=== PATIENT | male | born 1965 | race Caucasian/White ===

== ENCOUNTER 2021-10-24 08:36 | Outpatient (REF) | payer BC, SELFPAY ==
--- NOTE | ~2021-10-24 | XR_ITS ---
EXAMINATION: XR CHEST CLINICAL INFORMATION: Weight loss COMPARISON: None TECHNIQUE: 2 views of the chest were obtained. FINDINGS: The lungs are well-expanded. There is no focal consolidation, edema or effusion. No pneumothorax. The cardiomediastinal silhouette is within normal limits. No acute osseous abnormality. XR/XR chest 2V IMPRESSION: No acute pulmonary disease.
[2021-10-24 10:06] LABS: MANUAL DIFF FLAG NO
[2021-10-24 10:14] LABS: Appearance Urine CLEAR; Color Urine YELLOW; Glucose Urine UA NEG (NEG); Leukocyte Esterase Urine NEG (NEG); Nitrite Urine NEG (NEG); Specific Gravity - Urine 1.025 (1.005-1.025); Urine Blood 2+ (NEG); Urine Ketones NEG (NEG); Urine Protein NEG (NEG-TRACE)
[2021-10-24 10:15] LABS: Basophils Percent Auto 0.6 % (0-2); Eosinophils Absolute Auto 0.1 X10*3/uL (0.0-0.4); Eosinophils Percent Auto 1.2 % (0-4); Hematocrit 45.5 % (42.0-52.0); Imm Gran Abs Auto 0.02 X10*3/uL (0.00-0.03); Imm Gran Pct Auto 0.3 % (0.0-0.4); Lymphocytes Percent Auto 30.8 % (20-40); Mean Corpuscular Hemoglobin 29.9 pg (27.0-33.0); Mean Corpuscular Volume 90.6 fL (80.0-98.0); Mean Platelet Volume 10.4 fL (9.4-12.4); Monocytes Absolute Auto 0.5 X10*3/uL (0.1-1.2); Neutrophils Absolute Auto 3.8 x10*3/uL (2.0-8.3); Neutrophils Percent Auto 59.1 % (45-73); Platelet Count 208 X10*3/uL (160-400); Red Blood Count 5.02 X10*6/uL (4.60-5.80); Red Cell Distribution Width 13.2 % (11.0-16.0); White Blood Count 6.5 X10*3/uL (4.8-10.8)
[2021-10-24 10:38] LABS: Mucus Urine 2+ /LPF; Squamous Epithelial Cell Urine 1+ /LPF; WBC Urine 0 /HPF (0-4)
[2021-10-24 11:10] LABS: Alanine Aminotransferase 18 U/L (0-40); Albumin Level 4.4 g/dL (3.5-5.0); Alkaline Phosphatase 72 U/L (39-117); Anion Gap 10 (12-20); Aspartate Amino Transferase 21 U/L (5-37); Bilirubin Total 0.5 mg/dL (0.0-1.0); Blood Urea Nitrogen 15 mg/dL (9-16); Calcium 9.3 mg/dL (8.4-10.2); Carbon Dioxide 30 mmol/L (22-29); Chloride 105 mmol/L (96-108); Cholesterol 158 mg/dL; Estimated Glomerular Filt Rate > 60; Glucose Fasting 83 mg/dL (60-99); HDL Cholesterol 47 mg/dL; LDL Cholesterol Calculated 104 mg/dl; Potassium 4.5 mmol/L (3.3-5.1); Sodium 140 mmol/L (135-145); Triglycerides 36 mg/dL
[2021-10-24 11:13] LABS: Free T4 (Free Thyroxine) 0.86 ng/dL (0.71-1.85); Prostate Specific Antigen Scr 0.17 ng/mL (<0.05-4.0); Thyroid Stimulating Hormone 1.11 uIU/mL (0.32-4.0)
== END 2021-10-24 08:37 | disposition home or self-care (01) ==
LOC: HO.10HDL 08:36
PROVIDERS: PCP Internal Medicine; Visit Provider Internal Medicine
DX: R63.4 Abnormal weight loss (principal); I10 Essential (primary) hypertension; R60.9 Edema, unspecified; Z12.5 Encounter for screening for malignant neoplasm of prostate
CPT/HCPCS: 36415; 71046; 80053; 80061; 81001; 84153; 84439; 84443; 85025

== ENCOUNTER 2021-11-01 08:45 | Outpatient (REF) | payer BC, SELFPAY ==
[2021-11-01 10:50] LABS: Appearance Urine HAZY; Color Urine YELLOW; Glucose Urine UA NEG (NEG); Leukocyte Esterase Urine NEG (NEG); Nitrite Urine NEG (NEG); PH 6.5 (5.0-8.0); Urine Blood 2+ (NEG); Urine Ketones NEG (NEG); Urine Protein NEG (NEG-TRACE)
[2021-11-01 11:05] LABS: Mucus Urine TRACE /LPF; Squamous Epithelial Cell Urine TRACE /LPF; WBC Urine 0 /HPF (0-4)
== END 2021-11-01 08:46 | disposition home or self-care (01) ==
LOC: HO.10HDL 08:45
PROVIDERS: Visit Provider Internal Medicine
DX: R31.9 Hematuria, unspecified (principal)
CPT/HCPCS: 81001

== ENCOUNTER 2021-11-14 08:37 | Outpatient (REF) | payer BC, SELFPAY ==
[2021-11-14 10:23] LABS: Urine Cytology See Pathology rpt
== END 2021-11-14 08:38 | disposition home or self-care (01) ==
LOC: HO.10HDL 08:37
PROVIDERS: Visit Provider Internal Medicine
DX: R31.9 Hematuria, unspecified (principal)
CPT/HCPCS: 88112

== ENCOUNTER 2021-12-19 08:20 | Outpatient (REF) | payer BC, SELFPAY ==
--- NOTE | ~2021-12-19 | US_ITS ---
EXAMINATION: US RETROPERITONEAL LIMITED (RENAL ONLY) CLINICAL INFORMATION: Hematuria. COMPARISON: CT abdomen and pelvis 10/11/2018. TECHNIQUE: Real-time imaging of the kidneys. FINDINGS: RIGHT KIDNEY: 12.3 x 4.5 x 5.2 cm (SAG x AP x TRV). The kidney is normal in size, contour, and echogenicity. Renal cortical thickness is normal. There are 3 small cysts, largest measuring 1.2 x 0.9 x 1 cm in the upper pole. No renal calculi or hydronephrosis. LEFT KIDNEY: 12.6 x 6.9 x 6.0 cm (SAG x AP x TRV). The kidney is normal in size, contour, and echogenicity. Renal cortical thickness is normal. There is a 2 x 3 mm stone in the midpole. There are 2 left renal cysts largest measuring 1.4 x 1.5 x 1.3 cm in the midpole. No hydronephrosis. US/US renal BI IMPRESSION: Small left renal stone. Bilateral renal cysts.
== END 2021-12-19 08:21 | disposition home or self-care (01) ==
LOC: HO.US 08:20
PROVIDERS: PCP Internal Medicine; Visit Provider Internal Medicine
DX: R31.9 Hematuria, unspecified (principal)
CPT/HCPCS: 76775

== ENCOUNTER → 2022-05-02 12:31 | Outpatient (REF) | payer BC, SELFPAY ==
--- NOTE | ~2022-05-02 | US_ITS ---
EXAMINATION: US EXTRACRANIAL CAROTID DUPLEX, BILATERAL CLINICAL INFORMATION: Left branch retinal artery occlusion, rule out stenosis COMPARISON: None TECHNIQUE: Real-time ultrasound and Doppler techniques (integrating B-mode 2-D vascular images, Doppler spectral analysis and color-flow Doppler imaging) were utilized to interrogate the extracranial carotid arteries, the vertebral arteries and proximal subclavian arteries bilaterally. The degree of stenosis is determined by criteria similar to NASCET. FINDINGS: Right Side: 1. There is mild atherosclerotic plaque seen in the bifurcation/proximal ICA region. 2. The common carotid artery PSV proximally is 68 cm/s and distally 60 cm/s. 3. The proximal internal carotid artery velocities are 61 cm/s systolic and 22 cm/s diastolic. 4. The proximal external carotid artery PSV is 58 cm/s. 5. The vertebral artery shows antegrade flow. 6. The subclavian artery waveforms are normal. Left Side: 1. There is mild atherosclerotic plaque seen in the bifurcation/proximal ICA region. 2. The common carotid artery PSV proximally is 83 cm/s and distally 54 cm/s. 3. The proximal internal carotid artery velocities are 48 cm/s systolic and 15 cm/s diastolic. 4. The proximal external carotid artery PSV is 45 cm/s. 5. The vertebral artery shows antegrade flow. 6. The subclavian artery waveforms are normal. US/US carotid duplex BI IMPRESSION: 1. RIGHT: Minimal, non-hemodynamically significant stenosis of the proximal right internal carotid artery corresponding to a 0-49% stenosis by velocity criteria. 2. LEFT: Minimal, non-hemodynamically significant stenosis of the proximal left internal carotid artery corresponding to a 0-49% stenosis by velocity criteria.
--- NOTE | 2022-05-02 12:36 | CA_ITS ---
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 The calculated ejection fraction is 55% by biplane method. - No obvious valvular pathology seen on this study. Findings Left Ventricle Normal left ventricular cavity size. There is normal left ventricular wall thickness. The left ventricular systolic function is normal. The calculated ejection fraction is 55% by biplane method. There is no evidence of regional wall motion abnormalities. Diastolic function is normal for age. LV peak GLS -17.6%. Right Ventricle Normal right ventricular cavity size and systolic function. Atria Both atria are normal in size. Aortic Valve The aortic valve was not well visualized. The aortic valve structure and function is likely normal. There is no aortic valve stenosis. There is no aortic valve regurgitation. Mitral Valve The mitral valve appears normal. There is trace mitral valve regurgitation. There is no mitral valve stenosis. Pulmonic Valve The pulmonic valve is likely normal. Tricuspid Valve There is trace tricuspid valve regurgitation. There is no evidence of pulmonary hypertension. Great Vessels The asc aorta is normal in size. Venous The inferior vena cava is normal in size and collapses greater than 50% with inspiration. Pericardium/Pleural There is no evidence of pericardial effusion. Prior Study Comparison No prior study available for comparison. Recommendations, Care & Conclusions No obvious valvular pathology seen on this study. Measurements 2D Linear Measurements IVSd: 0.94 0.6-0.9/0.6-1.0 cm LVIDd: 5.40 3.9-5.3/4.2-5.9 cm LVIDd Index: 2.54 2.4-3.2/2.2-3.1 cm/m2 LVIDs: 3.63 2.0-3.6 cm LVPWd: 0.93 0.7-1.1 cm LA Diam: 4.10 2.7-3.8/3.0-4.0 cm LAIDs Index: 1.92 1.5-2.3 cm/m2 LV Mass: 236.18 67-162/88-224 g LV Mass Index: 110.88 43-95/49-115 g/m2 LVOT Diam: 2.30 3.0+(-)1.3 cm 2D Systolic Function EF 4C: 49.10 >55% EF 2C: 58.30 >55% EF BiP: 55.10 >55% Mitral Valve MV Pk E: 0.83 MV PK A: 0.54 MV Decel Time: 278.00 E/A: 1.50 E'Lateral: 13.60 E'Medial: 9.68 E/E' Med: 8.50 E/E' Lat: 6.10 PHT: 81.00 MVA PHT: 2.72 Decel [place]: 2.98 Aortic Valve AoV Pk Jose: 1.35 AoV Mn Jose: 0.92 AoV VTI: 0.26 AoV Pk Grad: 7.00 Aov Mn Grad: 4.00 RICKEY Cont.VTI: 3.98 LVOT LVOT Pk Jose: 1.21 LVOT Mn Jose: 0.83 LVOT VTI: 0.25 LVOT Pk Grad: 6.00 LVOT Mn Grad: 3.00 LVOT Diam: 2.30 LVOT Area: 4.15 Diastolic Function MV Pk E: 0.83 MV Pk A: 0.54 E/A: 1.50 E'Medial: 9.68 E/E' Med: 8.50 E' Laterial: 13.60 E/E' Lat: 6.10 Right Ventricle TAPSE (mm): 27.70 TVS' Jose: 12.00 Tricuspid Valve RA Press: 3.00 Great Vessels Aorta Sinus of Valsalva: 3.90 2.0-3.5 cm Ao Asc: 3.70 2.1-3.4 cm Pulmonary Valve PV Pk Jose: 0.94 Peak PV Grad: 4.00 Updated in Other Vendor System with Status of Final Angel Ceja MD electronically signed on 05/02/2022 3:28:11 PM with status of Final
== END ==
LOC: HO.CARD 12:31
PROVIDERS: PCP Internal Medicine; Visit Provider Internal Medicine
DX: H34.8322 Tributary (branch) retinal vein occlusion, left eye, stable (principal)
CPT/HCPCS: 93306; 93356; 93880

== ENCOUNTER 2022-10-03 06:30 | Outpatient (REF) | payer BC, SELFPAY ==
[2022-10-03 06:35] LABS: MANUAL DIFF FLAG NO
[2022-10-03 07:28] LABS: Basophils Absolute Auto 0.1 X10*3/uL (0.0-0.2); Basophils Percent Auto 0.6 % (0-2); Eosinophils Absolute Auto 0.1 X10*3/uL (0.0-0.4); Eosinophils Percent Auto 1.3 % (0-4); Hematocrit 45.4 % (42.0-52.0); Imm Gran Abs Auto 0.02 X10*3/uL (0.00-0.03); Imm Gran Pct Auto 0.3 % (0.0-0.4); Lymphocytes Absolute Auto 2.5 X10*3/uL (1.2-4.9); Lymphocytes Percent Auto 31.8 % (20-40); Mean Corpuscular Hemoglobin 29.6 pg (27.0-33.0); Mean Corpuscular Volume 89.5 fL (80.0-98.0); Mean Platelet Volume 10.6 fL (9.4-12.4); Monocytes Absolute Auto 0.8 X10*3/uL (0.1-1.2); Monocytes Percent Auto 9.9 % (2-11); Neutrophils Absolute Auto 4.4 x10*3/uL (2.0-8.3); Neutrophils Percent Auto 56.1 % (45-73); Platelet Count 187 X10*3/uL (160-400); Red Blood Count 5.07 X10*6/uL (4.60-5.80); Red Cell Distribution Width 13.6 % (11.0-16.0); White Blood Count 7.8 X10*3/uL (4.8-10.8)
[2022-10-03 08:11] LABS: Alanine Aminotransferase 21 U/L (0-40); Albumin Level 4.3 g/dL (3.5-5.0); Alkaline Phosphatase 73 U/L (39-117); Anion Gap 16 (12-20); Aspartate Amino Transferase 15 U/L (5-37); Bilirubin Total 0.8 mg/dL (0.0-1.0); Blood Urea Nitrogen 18 mg/dL (9-16); Calcium 9.3 mg/dL (8.4-10.2); Carbon Dioxide 26 mmol/L (22-29); Chloride 105 mmol/L (96-108); Cholesterol 162 mg/dL; Estimated Glomerular Filt Rate > 60; Glucose Fasting 92 mg/dL (60-99); HDL Cholesterol 53 mg/dL; LDL Cholesterol Calculated 102 mg/dl; Potassium 4.6 mmol/L (3.3-5.1); Sodium 142 mmol/L (135-145); Total Protein 6.8 g/dL (6.5-8.0); Triglycerides 35 mg/dL
== END 2022-10-03 06:31 | disposition home or self-care (01) ==
LOC: HO.LAB 06:30
PROVIDERS: PCP Internal Medicine; Visit Provider Internal Medicine
DX: Z00.00 Encounter for general adult medical examination without abnormal findings (principal); Z12.5 Encounter for screening for malignant neoplasm of prostate
CPT/HCPCS: 36415; 80053; 80061; 84153; 85025

== ENCOUNTER 2023-10-02 11:14 | Outpatient (REF) | payer OTHER, SELFPAY ==
[2023-10-02 11:55] LABS: MANUAL DIFF FLAG NO
[2023-10-02 12:52] LABS: Basophils Percent Auto 0.7 % (0-2); Eosinophils Absolute Auto 0.1 X10*3/uL (0.0-0.4); Eosinophils Percent Auto 1.2 % (0-4); Hematocrit 42.4 % (42.0-52.0); Hemoglobin 14.3 g/dl (14.0-18.0); Imm Gran Abs Auto 0.02 X10*3/uL (0.00-0.03); Imm Gran Pct Auto 0.3 % (0.0-0.4); Lymphocytes Absolute Auto 1.8 X10*3/uL (1.2-4.9); Lymphocytes Percent Auto 30.4 % (20-40); Mean Corpuscular HGB Conc 33.7 g/dl (31.0-36.0); Mean Corpuscular Hemoglobin 30.4 pg (27.0-33.0); Mean Corpuscular Volume 90.2 fL (80.0-98.0); Mean Platelet Volume 10.5 fL (9.4-12.4); Monocytes Absolute Auto 0.5 X10*3/uL (0.1-1.2); Monocytes Percent Auto 8.8 % (2-11); Neutrophils Absolute Auto 3.5 x10*3/uL (2.0-8.3); Neutrophils Percent Auto 58.6 % (45-73); Platelet Count 199 X10*3/uL (160-400); Red Cell Distribution Width 13.3 % (11.0-16.0)
[2023-10-02 14:00] LABS: Appearance Urine Clear; Color Urine Yellow; Glucose Urine UA Negative (Negative); Leukocyte Esterase Urine Negative (Negative); Nitrite Urine Negative (Negative); PH 6.5 (5.0-9.0); Specific Gravity - Urine 1.015 (1.005-1.025); UMIC TRIGGER UA YES; Urine Blood Small (1+) (Negative); Urine Ketones Negative (Negative); Urine Protein Negative (Neg-Trace)
[2023-10-02 14:06] LABS: Bacteria Urine None Seen (None Seen); Hyaline Casts Urine 0-2 /LPF (0-2); Squamous Epithelial Cell Urine 0-2 /HPF (0-2); WBC Urine 0-5 /HPF (0-5)
[2023-10-02 14:35] LABS: Alanine Aminotransferase 19 U/L (0-40); Albumin Level 4.1 g/dL (3.5-5.0); Alkaline Phosphatase 71 U/L (39-117); Anion Gap 14 (12-20); Aspartate Amino Transferase 25 U/L (5-37); Bilirubin Total 0.5 mg/dL (0.0-1.0); Blood Urea Nitrogen 14 mg/dL (9-16); Calcium 9.1 mg/dL (8.4-10.2); Carbon Dioxide 26 mmol/L (22-29); Chloride 104 mmol/L (96-108); Cholesterol 172 mg/dL (<200); Estimated Glomerular Filt Rate > 60; Glucose Fasting 80 mg/dL (60-99); HDL Cholesterol 55 mg/dL (>40); LDL Cholesterol Calculated 110 mg/dL (<100); Potassium 4.4 mmol/L (3.3-5.1); Sodium 140 mmol/L (135-145); Total Protein 7.2 g/dL (6.5-8.0); Triglycerides 36 mg/dL (<150)
== END 2023-10-02 11:15 | disposition home or self-care (01) ==
LOC: HO.LAB 11:14
PROVIDERS: PCP Internal Medicine; Visit Provider Internal Medicine
DX: Z12.5 Encounter for screening for malignant neoplasm of prostate (principal); I10 Essential (primary) hypertension; Z86.010 Personal history of colon polyps; Z87.442 Personal history of urinary calculi
CPT/HCPCS: 36415; 80053; 80061; 81001; 81003; 84153; 85025

== ENCOUNTER 2024-09-19 15:28 | Outpatient (REF) | payer OTHER, SELFPAY ==
--- NOTE | ~2024-09-19 | US_ITS ---
EXAMINATION: BILATERAL CAROTID ULTRASOUND WITH DOPPLER HISTORY: VISUAL DISTURBANCES COMPARISON: Comparison is made with the prior examination dated 05/02/2022. TECHNIQUE: Real time and Color and Spectral doppler ultrasonography of the carotid and vertebral arteries was performed in multiple planes. FINDINGS: There is mild plaque involving the proximal left internal carotid artery. Occasional arrhythmia is noted. VERTEBRAL FLOW DIRECTION: Antegrade bilaterally. PEAK SYSTOLIC VELOCITIES (in cm/sec): RIGHT: CCA: Prox: 85 Dist: 73 ICA: Prox: 68 Mid: 73 Dist: 98 ICA/CCA Ratio: 1.15 ECA: 110 Peak ICA EDV: 48 LEFT: CCA: Prox: 102 Dist: 80 ICA: Prox: 54 Mid: 99 Dist: 122 ICA/CCA Ratio: 1.20 ECA: 65 Peak ICA EDV: 54 US/US carotid duplex BI IMPRESSION: 1. No significant stenosis on the right. 2. Findings consistent with 0-49% stenosis of the left internal carotid artery. 3. Occasional arrhythmia is noted. Correlation with EKG is suggested. Electronically signed by: Ruel Ingram MD 09/22/2024 07:34 AM [facility]
--- OUTSIDE RECORDS SUMMARY | 2024-09-19 16:30 | XMS_ITS | Clinical Summary ---
Author Organization [employer] Address [address] [place] [address] Care Team Providers Care Currency Counter Name Role Phone Unavailable Primary Care Provider Unavailabl e Social History Tobacco Use Types Packs/Day Years Used Date Smoking Tobacco: Never Assessed Sex and Gender Information Value Date Recorded Sex Assigned at Male 06/26/2022 10:22 AM EDT Legal Sex Male 10:22 AM EDT Gender Identity Male 06/26/2022 10:22 AM EDT Sexual Orientation Straight 06/26/2022 10 :22 AM EDT Plan of Treatment Health Maintenance Due Date Last Done Comments CT Colonography 1965 Colonoscopy 1965 Colorectal Cancer Screening 1965 Depression Screening 1965 FIT DNA/Cologuard 1965 FIT 1965 FOBT 1965 Lipid Panel 1965 Sigmoidoscopy 1965 Alcohol/Substance Use Screening 1977 Tobacco Screening 1977 DTaP/Tdap/Td Vaccines (1 - Tdap) 1984 Hepatitis B Vaccines (1 of 3 - 19+ 3-dose series) 1984 Zoster Vaccines (1 of 2) 12/08/2015 COVID-19 Vaccine ( - 2023-2 5 season) 2024 Influenza Vaccine (#1) 2024 RSV Patients and Pa tients Aged 60 years or older (1 - 1-dose 75+ series) 2040 HIB Vaccines Aged Out No longer eligi ble based on patient's age to complete this topic HPV Vaccines Aged Out No longer eligi ble based on patient's age to complete this topic Hepatitis A Vaccines Aged Out No long er eligible based on patient's age to complete this topic IPV Vaccines Aged Out No longer eligi ble based on patient's age to complete this topic Meningococcal Vaccine Aged Out No dipti michell eligible based on patient's age to complete this topic Pneumococcal Vaccine: Pediat rics (0 to 5 Years) and At-Risk Patients (6 to 64 Years) Aged Out No longer eligible b ased on patient's age to complete this topic RSV under 20 months Aged Out No longe r eligible based on patient's age to complete this topic Rotavirus Vaccines Aged Out No longer eligible based on patient's age to complete this topic
--- OUTSIDE RECORDS SUMMARY | 2024-09-19 16:30 | XMS_ITS | Encounter Summary ---
Author Organization [employer] Address [address] [place] [address] Care Team Providers Care Prospecting Driller Name Role Phone Unavailable Primary Care Provider Unavailabl e Encounter Details Date Type Department Care Team (Latest Contact Info) Description 04/30/2019 Abstract C CONVERSIONS Dental, Provider, DDS Social History Tobacco Use Types Packs/Day Years Used Date Smoking Tobacco: Never Assessed Sex and Gender Information Value Date Recorded Sex Assigned at Male 06/26/2022 10:22 AM EDT Legal Sex Male 10:22 AM EDT Gender Identity Male 06/26/2022 10:22 AM EDT Sexual Orientation Straight 06/26/2022 10 :22 AM EDT documented as of this encounter Plan of Treatment Not on file documented as of this encounter Visit Diagnoses Not on filedocumented in this encounter
== END 2024-09-19 15:29 | disposition home or self-care (01) ==
LOC: HO.US 15:28
PROVIDERS: PCP Internal Medicine; Visit Provider Internal Medicine
DX: H53.8 Other visual disturbances (principal); I49.9 Cardiac arrhythmia, unspecified; I65.22 Occlusion and stenosis of left carotid artery
CPT/HCPCS: 93880

== ENCOUNTER → 2024-09-19 15:30 | Outpatient (BNV) | payer OTHER, SELFPAY | PROVIDERS: PCP Internal Medicine; Visit Provider Radiology Diagnostic Radiology | DX: I65.22 Occlusion and stenosis of left carotid artery (principal) | CPT/HCPCS: 93880 ==

== ENCOUNTER 2024-10-07 09:34 | Outpatient (REF) | payer OTHER, SELFPAY ==
[2024-10-07 10:24] LABS: MANUAL DIFF FLAG NO
[2024-10-07 10:31] LABS: Appearance Urine Clear; Basophils Percent Auto 0.3 % (0-2); Color Urine Yellow; Eosinophils Percent Auto 0.2 % (0-4); Glucose Urine UA Negative (Negative); Hematocrit 46.4 % (42.0-52.0); Hemoglobin 15.5 g/dl (14.0-18.0); Imm Gran Abs Auto 0.02 X10*3/uL (0.00-0.03); Imm Gran Pct Auto 0.3 % (0.0-0.4); Leukocyte Esterase Urine Negative (Negative); Lymphocytes Absolute Auto 1.9 X10*3/uL (1.2-4.9); Lymphocytes Percent Auto 28.5 % (20-40); Mean Corpuscular HGB Conc 33.4 g/dl (31.0-36.0); Mean Corpuscular Hemoglobin 29.7 pg (27.0-33.0); Mean Corpuscular Volume 88.9 fL (80.0-98.0); Mean Platelet Volume 10.4 fL (9.4-12.4); Monocytes Absolute Auto 0.5 X10*3/uL (0.1-1.2); Monocytes Percent Auto 7.3 % (2-11); Neutrophils Absolute Auto 4.1 x10*3/uL (2.0-8.3); Neutrophils Percent Auto 63.4 % (45-73); Nitrite Urine Negative (Negative); PH 7.5 (5.0-9.0); Platelet Count 204 X10*3/uL (160-400); Red Blood Count 5.22 X10*6/uL (4.60-5.80); Red Cell Distribution Width 13.1 % (11.0-16.0); Specific Gravity - Urine 1.015 (1.005-1.025); UMIC TRIGGER UA YES; Urine Blood Trace (Negative); Urine Ketones Negative (Negative); Urine Protein Negative (Neg-Trace); White Blood Count 6.5 X10*3/uL (4.8-10.8)
[2024-10-07 10:34] LABS: Bacteria Urine None Seen (None Seen); Hyaline Casts Urine 0-2 /LPF (0-2); Squamous Epithelial Cell Urine 0-2 /HPF (0-2); WBC Urine 0-5 /HPF (0-5)
[2024-10-07 11:04] LABS: Alanine Aminotransferase 19 U/L (0-40); Albumin Level 4.5 g/dL (3.5-5.0); Alkaline Phosphatase 69 U/L (39-117); Anion Gap 10 (12-20); Aspartate Amino Transferase 24 U/L (5-37); Bilirubin Total 0.7 mg/dL (0.0-1.0); Blood Urea Nitrogen 10 mg/dL (9-16); Calcium 9.4 mg/dL (8.4-10.2); Carbon Dioxide 31 mmol/L (22-29); Chloride 102 mmol/L (96-108); Cholesterol 154 mg/dL (<200); Estimated Glomerular Filt Rate > 60; Glucose Fasting 100 mg/dL (60-99); HDL Cholesterol 49 mg/dL (>40); LDL Cholesterol Calculated 96 mg/dL (<100); Potassium 4.3 mmol/L (3.3-5.1); Sodium 139 mmol/L (135-145); Total Protein 7.7 g/dL (6.5-8.0); Triglycerides 45 mg/dL (<150)
[2024-10-07 11:20] LABS: Prostate Specific Antigen Scr 0.25 ng/mL (<0.05-4.0)
== END 2024-10-07 09:35 | disposition home or self-care (01) ==
LOC: HO.10HDL 09:34
PROVIDERS: Visit Provider Internal Medicine
DX: Z12.5 Encounter for screening for malignant neoplasm of prostate (principal); I10 Essential (primary) hypertension; E78.5 Hyperlipidemia, unspecified
CPT/HCPCS: 36415; 80053; 80061; 81001; 84153; 85025

== ENCOUNTER 2024-11-07 22:05 | Inpatient (IN) | payer OTHER, SELFPAY ==
[2024-11-07 22:20] VITALS: BMI 26.0
[2024-11-07 22:45] VITALS: BP 164/74; PULSE 67; TEMP 36.8; O2SAT 97
--- NOTE | 2024-11-08 05:54 | PC.ADMIT ---
Juan Daniel Castro is a 58 year old male admitted to as a CV on 15 minute checks. He was admitted on 11/07/24 from [facility] at approximately 2220 via stretcher. His safety and skin check were unremarkable, except that the patient's toenails are overgrown and he has some discoloration on his left lower anterior koch. He denies pain at the discolored site. Juan Daniel states that he cannot bend far enough to cut his own toenails. Juan Daniel lives with his sister in law, brother, and nephew, who are on vacation at this time. Juan Daniel is suffering from paranoid delusions that he is being followed, that his electronic devices are bugged, and claims that his nephew removed a camera and attached wire from his bedroom and bathroom. Juan Daniel is hyperverbal and his speech is tangential, making it hard to extract information from him during assessment. This sign writer hand does not find any information about past medical history in the available paperwork or via nurse to nurse. At the time of admission, Juan Daniel denies SI, HI, AH, and VH. He rates his depression as 5/10, and his anxiety as 7/10. He feels safe on . Patient had reported to [facility] that if he could take a pill that would guarantee he would , he would take it. Patient reports he has been stuck on the couch, and cannot get out of his own head because he is paranoid. He is alert and oriented x4, independent with mobility and ADLs, and his vital signs are stable.
[2024-11-08 08:00] VITALS: BP 135/71; PULSE 60; RESP 18; TEMP 36.6; O2SAT 98
--- NOTE | 2024-11-08 08:37 | HO.PSYADMNOT ---
HPI Date of Service: 11/08/24 Chief Complaint: unspecified Schizophrenia Spectrum and other psych Sources of Information: patient interviewed, chart reviewed and crisis/core team assessment reviewed HPI Subjective Notes: Conditional Voluntary Healthcare Proxy: No Guardianship: No Medical Problems Affecting Mental Status: No Narrative: 58 yo with trouble sleeping and functioning- says he has been overwhelmed and ruminating- on fmla from job at [employer]- prior psych hospitalization and medication did not help He has found that thc helps him sleep - and then he would work 10 hr work days- But now not able to do that- tells very convoluted story about first hospitalization 2011 related to smear campaign around his job and family spread rumors- Took 10 years off to care for mother who had to go do diaysis and needed care till her in 2007. 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 Social History: living at sister, brother in law's and nephew who are away this week on vacation, pt working lately at [employer]- limited friends lost alot in 10 years caring for mom, and clearly some alienation from family smear campaign Substance History: MJ , hx etoh- none recent Trauma History: unobtained today Diagnostics Vital Signs (24Hr): Vital Signs - 24 hr 11/07/24 22:45 11/08/24 08:00 Temperature 98.2 F 98 F Pulse Rate 67 60 Respiratory Rate 18 Blood Pressure 164/74 H 135/71 Pulse Oximetry 97 98 Oxygen Delivery Method Room Air Room Air BMI result Body Mass Index 26.0 Labs 11/08/24 07:43 Meds/Allergies Meds Home Medications ?Medication ?Instructions ?Recorded ?Confirmed ?Type amlodipine 5 mg tablet 5 mg PO DAILY 11/07/24 11/07/24 History Allergies Allergies Allergy/AdvReac Type Severity Reaction Status Date / Time No Known Allergies Allergy Unverified 05/13/20 16:19 [No Known Allergies*] Mental Status Exam Mental Status Exam Patient Appearance: Unkempt Patient Orientation: Person, Place, Time and Situation Level of Consciousness: Awake Patient Behavior: Appropriate, Talkative, Cooperative and Good Eye Contact Mood Description: Anxious Affect Description: Appropriate Patient Cognition Impaired: No Ability to Follow Directions: Fair Speech Pattern: Clear Delusions: Ideas of Reference Thought Process: Intact and Goal Oriented Thought Content: positive for Perseveration and positive for Preoccupation Depressive Symptoms: Increased Anxiety, Difficulty Sleeping and Thoughts of /Suicide Abnormal Motor Activity Signs and Symptoms: Restlessness Judgement: Fair Assessment & Plan Assessment & Plan (1) Paranoia: Status: Acute Code(s): F22 - Delusional disorders (2) Cannabis abuse: Status: Acute Code(s): F12.10 - Cannabis abuse, uncomplicated Plan 11/08/24- discussed using medication to address insomnia and anxiety , likely psychosis since we can not prescribe mj here- - will give olanapine 5mg at bed- mileu and group therapy as tolerated- Patient educated on: medication risk/benefits and substance abuse Informed Consent: further education needed Reason for continued inpatient stay Substantial Risk for: harm to self, inability to function and rapid decompensation Statement Statement: I have reviewed the history and physical and performed a pertinent examination on my patient. No changes have occurred unless specified. If the History and Physical was not performed prior to admission, the Hospitalist's service will be consulted for completing the admission physical. Time Spent With Patient Time: Total time managing care of this patient today ____ minutes.
[2024-11-08 08:41] LABS: Alanine Aminotransferase 24 U/L (0-40); Albumin Level 4.2 g/dL (3.5-5.0); Anion Gap 14 (12-20); Aspartate Amino Transferase 18 U/L (5-37); Bilirubin Total 1.1 mg/dL (0.0-1.0); Blood Urea Nitrogen 13 mg/dL (9-16); Calcium 9.3 mg/dL (8.4-10.2); Carbon Dioxide 26 mmol/L (22-29); Chloride 104 mmol/L (96-108); Cholesterol 197 mg/dL (<200); Creatinine Clr Calc Pharmacy 102.5; Estimated Glomerular Filt Rate > 60; Glucose Fasting 102 mg/dL (60-99); HDL Cholesterol 61 mg/dL (>40); LDL Cholesterol Calculated 127 mg/dL (<100); Potassium 4.2 mmol/L (3.3-5.1); Sodium 140 mmol/L (135-145); Total Protein 7.3 g/dL (6.5-8.0); Triglycerides 45 mg/dL (<150)
[2024-11-08 09:27] LABS: Alkaline Phosphatase 77 U/L (39-117)
--- NOTE | 2024-11-08 10:51 | P.CONHOSP_ITS ---
History of Present Illness Data of Consult Service Date: 11/08/24 Requesting physician: [place] Jorge Primary Care Provider: None Physician HPI Reason for consult: medical H&P Pt with history of hypertension (was on amlodipine but has not taken in 10 days) admitted to adult psychiatry with consult placed to hospitalist service for medical H&P. He is anxious appearing and that is his only complaint. Denies any physical complaints. While at [facility], blood pressures were elevated at 144/73 and 154/80. On arrival, bp 164/74. This morning 135/71. Feels elevated pressures are all anxiety related. While at [facility] ED, hematology studies unremarkable. Renal function and electrolyte levels within normal limits. TSH 1.42. Urine tox screen positive for cannabis which he does endorse use of. Denies any other illicit drug use. Urinalysis with small amount of protein and blood but otherwise negative. EKG shows NSR, rate 63 without any QT/T-wave abnormality. Review of Systems 2 Review of Systems: General: No fevers, malaise, unintentional weight loss HEENT: No blurred vision, diplopia. No sore throat, nasal congestion, rhinorrhea, sinus pain, ear pain Cardiovascular: No chest pain, palpitations, or leg edema Respiratory: No shortness of breath, wheezing, cough GI: No abdominal pain, nausea, vomiting, diarrhea, constipation, melena, hematochezia : No dysuria, hematuria, increased urinary frequency, decreased urinary output MSK: No myalgia, back pain Neuro: No headaches, weakness, paresthesias Skin: No rashes or lesions [facility] Medical History (Updated 11/08/24 @ 11:55 by YIMI Tony) Paranoia Anxiety Hypertension Social History Household Members: Family Housing: House Do you presently have visiting nurse or other home services: No Patient Tobacco Use Status: Current everyday Tobacco user Tobacco use type: Cigarette Cigarette Packs Per Day: 0.75 Cigarettes Per Day: 15.0 Smoked in Last 30 Days: Yes e-Cigarette/Vaping Use: Currently Using Patient Interested in Nicotine Replacement: No Patient Given Instructions on How to Stop Smoking: No Second Hand Smoke Exposure: Yes Use of substances other than those prescribed or required for medical reasons: Yes Substance Use Type: Marijuana Substance Use Frequency: Weekly Last Used Substance: Days (ago) Currently Displaying Signs/Symptoms of Drug Intoxication Withdrawal: No Any prior treatment program specific to substance use: Yes (Pt states he went to a program ; too disorganized to answer clearly) Have you been hit, kicked, punched, or otherwise hurt by someone within the past year? If so, by whom?: No Do you feel safe in your current relationship?: No Current Relationship Is there a partner from a previous relationship who is making you feel unsafe now?: No Are you made to feel afraid or neglected: No Advance Directives: No Advance Directives Information Provided: No Do you have thoughts of harming others: None Do you have a plan to hurt others: No Plan Recently lost weight without trying: No Eating poorly because of decreased appetite: Yes Nutrition Risks: No Nutritional Risk Poor oral hygiene: No Meds Allergies Allergy/AdvReac Type Severity Reaction Status Date / Time No Known Allergies Allergy Unverified 05/13/20 16:19 [No Known Allergies*] Active Medications: Current Medications Acetaminophen (Acetaminophen 325 Mg Tablet) 650 mg PO Q6H PRN PRN Reason: Headache/Pain, Scale 1-10 Al Hydroxide/Mg Hydroxide (Magnesium Hydrox/Alum Hydrox 30 Ml Oral.Susp) 30 ml PO Q6H PRN PRN Reason: Heartburn/Nausea Hydroxyzine HCl (Hydroxyzine Hcl 25 Mg Tablet) 25 mg PO Q6H PRN PRN Reason: mild anxiety Magnesium Hydroxide (Milk Of Magnesia 30 Ml Oral.Susp) 30 ml PO DAILY PRN PRN Reason: Constipation Nicotine (Nicotine 21 Mg Patch.Td24) 21 mg TRANSDERMA DAILY HAKAN Last Admin: 11/08/24 10:21 Dose: Not Given Nicotine Polacrilex (Nicotine Polacrilex 2 Mg Gum) 4 mg BUCCAL Q2H PRN PRN Reason: Nicotine Cravings Olanzapine (Olanzapine 5 Mg Tablet) 5 mg PO Q4H PRN PRN Reason: agitation Trazodone HCl (Trazodone Hcl 50 Mg Tablet) 50 mg PO BEDTIME MRX1 PRN PRN Reason: Insomnia Home Medications ?Medication ?Instructions ?Recorded ?Confirmed ?Last Taken ?Type amlodipine 5 mg tablet 5 mg PO DAILY 11/07/24 11/07/24 Unknown History Physical Exam 2 Vital Signs and Narrative: Vital Signs: Last Vital Signs Temp 98 F 11/08/24 08:00 Pulse 60 11/08/24 08:00 Resp 18 11/08/24 08:00 BP 135/71 11/08/24 08:00 Pulse Ox 98 11/08/24 08:00 O2 Del Method Room Air 11/08/24 08:00 BMI result Body Mass Index 26.0 Constitutional - Awake and Alert, No apparent distress Eyes - PERRLA, EOMI Cardiovascular - S1S2, RRR, No edema Respiratory - Normal lung expansion, Normal respiratory effort, No respiratory distress, CTA bilaterally Gastrointestinal - NT / ND; +BS; No rebound or guarding Extremities - no calf tenderness bilaterally, no swelling Musculoskeletal - Normal inspection, normal ROM Skin - Warm/Dry Neurological - Alert & oriented x3, CN II-XII in tact, 5/5 strength BUE and BLE Psychological - Appropriate affect Results Labs 11/08/24 07:43 Labs: Laboratory Results - last 24 hr 11/08/24 07:43 Anion Gap 14 Estim Creat Clear Calc 102.5 Estimated GFR > 60 Fasting Glucose 102 H Calcium 9.3 Total Bilirubin 1.1 H AST 18 ALT 24 Alkaline Phosphatase 77 Total Protein 7.3 Albumin 4.2 Triglycerides 45 Cholesterol 197 LDL Cholesterol, Calc 127 H HDL Cholesterol 61 Assessment and Plan (1) Routine medical exam: Status: Acute Plan Pt with history of hypertension (was on amlodipine but has not taken in 10 days) admitted to adult psychiatry with consult placed to hospitalist service for medical H&P #Anxiety/Paranoia -plan per psychiatry #HTN -has not been on antihypertensives in 10 days -BP in ED and on arrival elevated. However, today bp 135/71 this morning and 131/60 at noon -Hold on resuming amlodipine for now. If BP consistently over 140/90, recommend resuming amlodipine 5mg daily Thank you for allowing me to participate in this consult. Signing off at this time. Please do not hesitate to call for further questions.
[2024-11-08 11:58] VITALS: BP 131/60; PULSE 65; RESP 16
[2024-11-08 19:58] VITALS: BP 120/56; PULSE 73; TEMP 37.3; O2SAT 98
[2024-11-08] MEDS: OLANZapine 5 MG TABLET PO (20:13)
[2024-11-08] MEDS: traZODone HCL 50 MG TABLET PO ×2 (20:13→21:45)
[2024-11-09 07:54] VITALS: BP 144/67; PULSE 63; RESP 16; TEMP 36.3; O2SAT 100
--- NOTE | 2024-11-09 11:39 | HO.PSYCHPN ---
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 Was working fine till the smear thing crossed over to [employer] Medication Compliance: Yes Side effects from medications: Yes (mild am grogginess but may have been from 2 meds?) Attending Groups: Yes Review of Systems Acute medical concerns: No Medical Review of Systems: unchanged Mental Status Exam Mental Status Exam Patient Appearance: Appropriate Patient Orientation: Person, Place, Time and Situation Level of Consciousness: Awake Patient Behavior: Cooperative, Restless and Good Eye Contact Mood Description: Anxious Affect Description: Appropriate Patient Cognition Impaired: No Ability to Follow Directions: Good Speech Pattern: Clear Hallucinations: None Delusions: Ideas of Reference Thought Process: Intact Thought Content: positive for Intact and positive for Goal Oriented Depressive Symptoms: Increased Anxiety, Difficulty Sleeping, Isolating-Friends/Family and Difficulty Concentrating Judgement: Fair Diagnostics Vital Signs (24Hr): Vital Signs - 24 hr 11/08/24 11:58 11/08/24 19:58 11/09/24 07:54 Temperature 99.1 F 97.3 F Pulse Rate 65 73 63 Respiratory Rate 16 16 Blood Pressure 131/60 120/56 L 144/67 H Pulse Oximetry 98 100 Oxygen Delivery Method Room Air Room Air BMI result Body Mass Index 26.0 Labs 11/08/24 07:43 Labs: Laboratory Results - last 48 hr 11/08/24 07:43 Sodium 140 Potassium 4.2 Chloride 104 Carbon Dioxide 26 Anion Gap 14 BUN 13 Creatinine 0.76 Estim Creat Clear Calc 102.5 Estimated GFR > 60 Fasting Glucose 102 H Calcium 9.3 Total Bilirubin 1.1 H AST 18 ALT 24 Alkaline Phosphatase 77 Total Protein 7.3 Albumin 4.2 Triglycerides 45 Cholesterol 197 LDL Cholesterol, Calc 127 H HDL Cholesterol 61 Medications Medications Current Medications Acetaminophen (Acetaminophen 325 Mg Tablet) 650 mg PO Q6H PRN PRN Reason: Headache/Pain, Scale 1-10 Al Hydroxide/Mg Hydroxide (Magnesium Hydrox/Alum Hydrox 30 Ml Oral.Susp) 30 ml PO Q6H PRN PRN Reason: Heartburn/Nausea Hydroxyzine HCl (Hydroxyzine Hcl 25 Mg Tablet) 25 mg PO Q6H PRN PRN Reason: mild anxiety Magnesium Hydroxide (Milk Of Magnesia 30 Ml Oral.Susp) 30 ml PO DAILY PRN PRN Reason: Constipation Nicotine (Nicotine 21 Mg Patch.Td24) 21 mg TRANSDERMA DAILY [facility] Last Admin: 11/09/24 07:53 Dose: Not Given Nicotine Polacrilex (Nicotine Polacrilex 2 Mg Gum) 4 mg BUCCAL Q2H PRN PRN Reason: Nicotine Cravings Olanzapine (Olanzapine 5 Mg Tablet) 5 mg PO Q4H PRN PRN Reason: agitation Olanzapine (Olanzapine 5 Mg Tablet) 5 mg PO BEDTIME [facility]AKAN Last Admin: 11/08/24 20:13 Dose: 5 mg Trazodone HCl (Trazodone Hcl 50 Mg Tablet) 50 mg PO BEDTIME MRX1 PRN PRN Reason: Insomnia Last Admin: 11/08/24 21:45 Dose: 50 mg Allergies Allergies Allergy/AdvReac Type Severity Reaction Status Date / Time No Known Allergies Allergy Unverified 05/13/20 16:19 [No Known Allergies*] Assessment & Plan Assessment & Plan (1) Paranoia: Status: Acute Code(s): F22 - Delusional disorders (2) Cannabis abuse: Status: Acute Code(s): F12.10 - Cannabis abuse, uncomplicated Plan 11/08/24- discussed using medication to address insomnia and anxiety , likely psychosis since we can not prescribe mj here- - will give olanapine 5mg at bed- [facility] and group therapy as tolerated- 11/09- asked nursing to focus on olanzapine for sleep not offer prns - so wrote for higher olanzapine for tonight, don't want him confusing s/e of hangover with trazodone with not take olanzapine to try and target on delusion/paranoid sys- Patient educated on: medication risk/benefits Informed Consent: further education needed Reason for continued inpatient stay Substantial Risk for: rapid decompensation Time Spent With Patient Time: Total time managing care of this patient today ____ minutes.
[2024-11-09 19:30] VITALS: BP 129/62; PULSE 71; RESP 15; TEMP 36.8; O2SAT 98
[2024-11-09] MEDS: OLANZapine 5 MG TABLET PO ×2 (20:14→21:19)
[2024-11-10 07:47] VITALS: BP 139/55; PULSE 63; TEMP 36.4; O2SAT 99
--- NOTE | 2024-11-10 09:02 | HO.PSYCHPN ---
Subjective Subjective Date of Service: 11/10/24 Reason For Visit: unspecified Schizophrenia Spectrum and other psych Interim History: Met with patient; discussed with team; reviewed chart Patient sharing concerns that he is being maligned at work, expressing paranoid delusion that there is some collective conspiracy against him at work (that seems to be chronic but intermittently exacerbated). Patient says there must have been someone who filmed while at home in the bathroom and spread this video throughout work. He says he can tell because of the way peers gesture and look at him... He thinks perhaps his nephews are in on it maybe his sister... Patient says that I can not know for sure but is mostly convince because of what he perceives as coworkers gestures. Patient says that it has been so upsetting, worsening over the past month, that last week he remained balled up on the couch... Attempt at reality testing with limited success. Patient talked about conspiracy against him at great length. Patient shared how this experience is so upsetting that he has thought of suicide however he has no plan and does not want to hurt others by his actions. Agrees to increase Zyprexa. Mental Status Exam Mental Status Exam Narrative: Pt is alert and oriented; behavior is hypomanic and animated; also cooperative, friendly; patient is not in distress; dressed in casual attire with adequate hygiene and grooming; mood is described as anxious and affect congruent; eye contact appropriate; Speech is verbose, mildly pressured; normal volume and prosody; some psychomotor agitation present; thought process is goal directed but distracted and circumstantial; Thought content is on paranoid, delusional ideations; intermittent SI; no HI. Denies AVH and there is no evidence of perceptual disturbance. Patients insight and judgment impaired Diagnostics Vital Signs (24Hr): Vital Signs - 24 hr 11/09/24 19:30 11/10/24 07:47 Temperature 98.3 F 97.5 F Pulse Rate 71 63 Respiratory Rate 15 Blood Pressure 129/62 139/55 L Pulse Oximetry 98 99 Oxygen Delivery Method Room Air BMI result Body Mass Index 26.0 Labs 11/08/24 07:43 Labs: Laboratory Results - last 48 hr 11/08/24 07:43 Alkaline Phosphatase 77 Medications Medications Current Medications Acetaminophen (Acetaminophen 325 Mg Tablet) 650 mg PO Q6H PRN PRN Reason: Headache/Pain, Scale 1-10 Al Hydroxide/Mg Hydroxide (Magnesium Hydrox/Alum Hydrox 30 Ml Oral.Susp) 30 ml PO Q6H PRN PRN Reason: Heartburn/Nausea Hydroxyzine HCl (Hydroxyzine Hcl 25 Mg Tablet) 25 mg PO Q6H PRN PRN Reason: mild anxiety Magnesium Hydroxide (Milk Of Magnesia 30 Ml Oral.Susp) 30 ml PO DAILY PRN PRN Reason: Constipation Nicotine (Nicotine 21 Mg Patch.Td24) 21 mg TRANSDERMA DAILY PRN PRN Reason: Nicotine Cravings Nicotine Polacrilex (Nicotine Polacrilex 2 Mg Gum) 4 mg BUCCAL Q2H PRN PRN Reason: Nicotine Cravings Olanzapine (Olanzapine 5 Mg Tablet) 5 mg PO Q4H PRN PRN Reason: agitation Olanzapine (Olanzapine 5 Mg Tablet) 5 mg PO BEDTIME MRX1 [facility] Last Admin: 11/09/24 21:19 Dose: 5 mg Allergies Allergies Allergy/AdvReac Type Severity Reaction Status Date / Time No Known Allergies Allergy Unverified 05/13/20 16:19 [No Known Allergies*] Assessment & Plan Assessment & Plan (1) Delusional disorder: Status: Acute Code(s): F22 - Delusional disorders (2) Cannabis abuse: Status: Acute Code(s): F12.10 - Cannabis abuse, uncomplicated (3) Hypertension: Status: Acute Code(s): I10 - Essential (primary) hypertension Plan Presentation: chronic paranoid delusions that for some reason has been exacerbated starting about a month ago HOSPITAL COURSE: 11/08/24- discussed using medication to address insomnia and anxiety , likely psychosis since we can not prescribe mj here- - will give olanzapine 5mg at bed- [facility] and group therapy as tolerated- 11/10 Patient sharing concerns that he is being maligned at work, expressing paranoid delusion that there is some collective conspiracy against him at work (that seems to be chronic but intermittently exacerbated). Patient says there must have been someone who filmed while at home in the bathroom and spread this video throughout work. He says he can tell because of the way peers gesture and look at him... He thinks perhaps his nephews are in on it maybe his sister... Patient says that I can not know for sure but is mostly convince because of what he perceives as coworkers gestures. Patient says that it has been so upsetting, worsening over the past month, that last week he remained balled up on the couch... Attempt at reality testing with limited success. Patient talked about conspiracy against him at great length. Patient shared how this experience is so upsetting that he has thought of suicide however he has no plan and does not want to hurt others by his actions. -Agrees to increase Zyprexa. PLAN: CV Increase Zyprexa to 15mg Add clonidine 0.1mg qhs Patient educated on: diagnosis and medication risk/benefits Informed Consent: understands, does not understand and further education needed Reason for continued inpatient stay Substantial Risk for: inability to function Time Spent With Patient Time: Total time managing care of this patient today ____ minutes.
[2024-11-10 16:57] VITALS: BP 157/69; PULSE 73
[2024-11-10 18:45] VITALS: BP 155/60
[2024-11-10] MEDS: OLANZapine 7.5 MG TABLET 15 MG PO (18:45)
[2024-11-10] MEDS: cloNIDine HCL 0.1 MG TABLET PO (18:45)
[2024-11-10 19:53] VITALS: BP 144/70; PULSE 72; RESP 18; TEMP 36.6; O2SAT 99
[2024-11-11 08:20] VITALS: BP 122/61; PULSE 62; TEMP 36.4; O2SAT 100
--- NOTE | 2024-11-11 09:37 | HO.PSYCHPN ---
Subjective Subjective Date of Service: 11/11/24 Reason For Visit: unspecified Schizophrenia Spectrum and other psych Interim History: Met with patient; discussed with team Pt remains with intense paranoid delusions about work, thinking there is a conspiracy to malign him at work; assumes it's because he is in line for a promotion; refers to phone being hacked...says he's getting ready to just quit if everyone is going to keep putting him in a box. agrees to increase Zyprexa to 20mg qhs. Mental Status Exam Mental Status Exam Narrative: Pt is alert and oriented; behavior is hypomanic and animated; also cooperative, friendly; patient is not in distress; dressed in casual attire with adequate hygiene and grooming; mood is described as upset and affect congruent; eye contact appropriate; Speech is verbose, mildly pressured; normal volume and prosody; some psychomotor agitation present; thought process is goal directed but distracted and circumstantial; Thought content is on paranoid, delusional ideations; no SI; no HI. Denies AVH and there is no evidence of perceptual disturbance. Patients insight and judgment impaired Diagnostics Vital Signs (24Hr): Vital Signs - 24 hr 11/10/24 16:57 11/10/24 18:45 11/10/24 19:53 Temperature 98 F Pulse Rate 73 72 Respiratory Rate 18 Blood Pressure 157/69 H 155/60 H 144/70 H Pulse Oximetry 99 Oxygen Delivery Method Room Air 11/11/24 08:20 Temperature 97.5 F Pulse Rate 62 Respiratory Rate Blood Pressure 122/61 Pulse Oximetry 100 Oxygen Delivery Method Room Air BMI result Body Mass Index 26.0 Labs 11/08/24 07:43 Medications Medications Current Medications Acetaminophen (Acetaminophen 325 Mg Tablet) 650 mg PO Q6H PRN PRN Reason: Headache/Pain, Scale 1-10 Al Hydroxide/Mg Hydroxide (Magnesium Hydrox/Alum Hydrox 30 Ml Oral.Susp) 30 ml PO Q6H PRN PRN Reason: Heartburn/Nausea Clonidine HCl (Clonidine Hcl 0.1 Mg Tablet) 0.1 mg PO DAILY@1800 [facility]; Protocol Last Admin: 11/10/24 18:45 Dose: 0.1 mg Hydroxyzine HCl (Hydroxyzine Hcl 25 Mg Tablet) 25 mg PO Q6H PRN PRN Reason: mild anxiety Magnesium Hydroxide (Milk Of Magnesia 30 Ml Oral.Susp) 30 ml PO DAILY PRN PRN Reason: Constipation Nicotine (Nicotine 21 Mg Patch.Td24) 21 mg TRANSDERMA DAILY PRN PRN Reason: Nicotine Cravings Nicotine Polacrilex (Nicotine Polacrilex 2 Mg Gum) 4 mg BUCCAL Q2H PRN PRN Reason: Nicotine Cravings Olanzapine (Olanzapine 7.5 Mg Tablet) 15 mg PO DAILY@1800 [facility] Last Admin: 11/10/24 18:45 Dose: 15 mg Allergies Allergies Allergy/AdvReac Type Severity Reaction Status Date / Time No Known Allergies Allergy Unverified 05/13/20 16:19 [No Known Allergies*] Assessment & Plan Assessment & Plan (1) Delusional disorder: Status: Acute Code(s): F22 - Delusional disorders (2) Cannabis abuse: Status: Acute Code(s): F12.10 - Cannabis abuse, uncomplicated (3) Hypertension: Status: Acute Code(s): I10 - Essential (primary) hypertension Plan Presentation: chronic paranoid delusions that for some reason has been exacerbated starting about a month ago HOSPITAL COURSE: 11/08/24- discussed using medication to address insomnia and anxiety , likely psychosis since we can not prescribe mj here- - will give olanzapine 5mg at bed- [facility] and group therapy as tolerated- 11/10 Patient sharing concerns that he is being maligned at work, expressing paranoid delusion that there is some collective conspiracy against him at work (that seems to be chronic but intermittently exacerbated). Patient says there must have been someone who filmed while at home in the bathroom and spread this video throughout work. He says he can tell because of the way peers gesture and look at him... He thinks perhaps his nephews are in on it maybe his sister... Patient says that I can not know for sure but is mostly convince because of what he perceives as coworkers gestures. Patient says that it has been so upsetting, worsening over the past month, that last week he remained balled up on the couch... Attempt at reality testing with limited success. Patient talked about conspiracy against him at great length. Patient shared how this experience is so upsetting that he has thought of suicide however he has no plan and does not want to hurt others by his actions. -Agrees to increase Zyprexa. 11/11 Pt remains with intense paranoid delusions about work, thinking there is a conspiracy to malign him at work; assumes it's because he is in line for a promotion; refers to phone being hacked...says he's getting ready to just quit if everyone is going to keep putting him in a box. -no SI; hopeful that newspaper writer can find a way to help -agrees to increase Zyprexa to 20mg qhs. -still not sleeping great PLAN: CV Increase Zyprexa to 20mg Add clonidine 0.1mg qhs Patient educated on: diagnosis and medication risk/benefits Informed Consent: understands, does not understand and further education needed Reason for continued inpatient stay Substantial Risk for: inability to function Time Spent With Patient Time: Total time managing care of this patient today ____ minutes.
[2024-11-11 21:00] VITALS: BP 128/62; PULSE 75; TEMP 37.3; O2SAT 99
[2024-11-11] MEDS: OLANZapine 10 MG TABLET 20 MG PO (21:28)
[2024-11-11] MEDS: cloNIDine HCL 0.1 MG TABLET PO (21:35)
[2024-11-12 08:09] VITALS: BP 143/64; PULSE 51; TEMP 36.5; O2SAT 100
[2024-11-12] MEDS: risperiDONE 1 MG TABLET PO (13:51)
--- NOTE | 2024-11-12 17:42 | HO.PSYCHPN ---
Subjective Subjective Date of Service: 11/12/24 Reason For Visit: unspecified Schizophrenia Spectrum and other psych Interim History: Met with patient; discussed with team Patient remains overwhelmingly anxious, continues with concerns about paranoid delusional thoughts, convinced he is experiencing a conspiracy at work. Patient says that he feels more internally aggravated today. Appreciates signwriter trying to help but worried that his aggravation is worsening; still struggling to sleep. Discussed patient is abruptly discontinued cannabis which is likely contributory. Discussed medication and patient agreed to try Risperdal 1 mg; signwriter followed up with patient awhile later and patient said this medication seemed to help; patient agrees to switch from Zyprexa to risperidone Mental Status Exam Mental Status Exam Narrative: Pt is alert and oriented; behavior is more calm overall, not hypomanic; remains cooperative and friendly; patient is not in distress; dressed in casual attire with adequate hygiene and grooming; mood is described as internally aggrevated and affect congruent constricted; eye contact appropriate; Speech is verbose, mildly pressured; normal volume and prosody; some psychomotor agitation present; thought process is goal directed but distracted and circumstantial; Thought content is on paranoid, delusional ideations; no SI; no HI. Denies AVH and there is no evidence of perceptual disturbance. Patients insight and judgment impaired Diagnostics Vital Signs (24Hr): Vital Signs - 24 hr 11/11/24 21:00 11/12/24 08:09 Temperature 99.1 F 97.7 F Pulse Rate 75 51 Blood Pressure 128/62 143/64 H Pulse Oximetry 99 100 Oxygen Delivery Method Room Air Room Air BMI result Body Mass Index 26.0 Labs 11/08/24 07:43 Medications Medications Current Medications Acetaminophen (Acetaminophen 325 Mg Tablet) 650 mg PO Q6H PRN PRN Reason: Headache/Pain, Scale 1-10 Al Hydroxide/Mg Hydroxide (Magnesium Hydrox/Alum Hydrox 30 Ml Oral.Susp) 30 ml PO Q6H PRN PRN Reason: Heartburn/Nausea Clonidine HCl (Clonidine Hcl 0.1 Mg Tablet) 0.1 mg PO DAILY@1999 [facility]; Protocol Last Admin: 11/11/24 21:35 Dose: 0.1 mg Hydroxyzine HCl (Hydroxyzine Hcl 25 Mg Tablet) 25 mg PO Q6H PRN PRN Reason: mild anxiety Magnesium Hydroxide (Milk Of Magnesia 30 Ml Oral.Susp) 30 ml PO DAILY PRN PRN Reason: Constipation Nicotine (Nicotine 21 Mg Patch.Td24) 21 mg TRANSDERMA DAILY PRN PRN Reason: Nicotine Cravings Nicotine Polacrilex (Nicotine Polacrilex 2 Mg Gum) 4 mg BUCCAL Q2H PRN PRN Reason: Nicotine Cravings Risperidone (Risperidone 2 Mg Tablet) 2 mg PO BEDTIME HAKAN Risperidone (Risperidone 0.5 Mg Tablet) 0.5 mg PO Q4H PRN PRN Reason: agitation/internal frustration Trazodone HCl (Trazodone Hcl 100 Mg Tablet) 100 mg PO BEDTIME PRN PRN Reason: continued insomnia Allergies Allergies Allergy/AdvReac Type Severity Reaction Status Date / Time No Known Allergies Allergy Unverified 05/13/20 16:19 [No Known Allergies*] Assessment & Plan Assessment & Plan (1) Delusional disorder: Status: Acute Code(s): F22 - Delusional disorders (2) Cannabis abuse: Status: Acute Code(s): F12.10 - Cannabis abuse, uncomplicated (3) Hypertension: Status: Acute Code(s): I10 - Essential (primary) hypertension Plan Presentation: chronic paranoid delusions that for some reason has been exacerbated starting about a month ago HOSPITAL COURSE: 11/08/24- discussed using medication to address insomnia and anxiety , likely psychosis since we can not prescribe mj here- - will give olanzapine 5mg at bed- [facility] and group therapy as tolerated- 11/10 Patient sharing concerns that he is being maligned at work, expressing paranoid delusion that there is some collective conspiracy against him at work (that seems to be chronic but intermittently exacerbated). Patient says there must have been someone who filmed while at home in the bathroom and spread this video throughout work. He says he can tell because of the way peers gesture and look at him... He thinks perhaps his nephews are in on it maybe his sister... Patient says that I can not know for sure but is mostly convince because of what he perceives as coworkers gestures. Patient says that it has been so upsetting, worsening over the past month, that last week he remained balled up on the couch... Attempt at reality testing with limited success. Patient talked about conspiracy against him at great length. Patient shared how this experience is so upsetting that he has thought of suicide however he has no plan and does not want to hurt others by his actions. -Agrees to increase Zyprexa. 11/11 Pt remains with intense paranoid delusions about work, thinking there is a conspiracy to malign him at work; assumes it's because he is in line for a promotion; refers to phone being hacked...says he's getting ready to just quit if everyone is going to keep putting him in a box. -no SI; hopeful that signwriter can find a way to help -agrees to increase Zyprexa to 20mg qhs. -still not sleeping great 11/12 Patient remains overwhelmingly anxious, continues with concerns about paranoid delusional thoughts, convinced he is experiencing a conspiracy at work. Patient says that he feels more internally aggravated today. Appreciates signwriter trying to help but worried that his aggravation is worsening; still struggling to sleep. Discussed patient is abruptly discontinued cannabis which is likely contributory. Discussed medication and patient agreed to try Risperdal 1 mg; signwriter followed up with patient awhile later and patient said this medication seemed to help; patient agrees to switch from Zyprexa to risperidone PLAN: CV g Start Risperdal 2 mg q.h.s. Add Risperdal 0.5 mg as a p.r.n. for daytime agitation/psychotic anxiety Add clonidine 0.1mg qhs Discontinue Zyprexa Continue clonidine 0.1mg qhs Patient educated on: diagnosis and medication risk/benefits Informed Consent: understands, does not understand and further education needed Reason for continued inpatient stay Substantial Risk for: inability to function Time Spent With Patient Time: Total time managing care of this patient today ____ minutes.
[2024-11-12 20:00] VITALS: BP 144/89; PULSE 77; TEMP 36.3; O2SAT 99
[2024-11-12 20:28] VITALS: BP 144/89
[2024-11-12] MEDS: cloNIDine HCL 0.1 MG TABLET PO (20:28)
[2024-11-12] MEDS: risperiDONE 2 MG TABLET PO (20:32)
[2024-11-13 07:00] VITALS: BMI 29.6
[2024-11-13 07:54] VITALS: BP 159/75; PULSE 57; RESP 16; TEMP 36.5; O2SAT 100
[2024-11-13] MEDS: risperiDONE 0.5 MG TABLET PO ×2 (12:30→17:37)
[2024-11-13 19:54] VITALS: BP 161/76; PULSE 80; RESP 16; TEMP 36.8; O2SAT 97
[2024-11-13 21:01] VITALS: BP 148/67
[2024-11-13] MEDS: cloNIDine HCL 0.1 MG TABLET PO (21:01)
[2024-11-13] MEDS: risperiDONE 2 MG TABLET PO (21:02)
[2024-11-14 08:07] VITALS: BP 123/66; PULSE 65; RESP 16; TEMP 36.6; O2SAT 99
--- NOTE | 2024-11-14 09:24 | P.PNPSI_ITS ---
Subjective Subjective Date of Service: 11/13/24 Reason For Visit: unspecified Schizophrenia Spectrum and other psych Interim History: Late entry note for patient seen on 11/13; discussed with team Patient reports that Risperdal seems to be a little more helpful but that he continues to struggle; feels that daytime p.r.n. dose helps. Still not sleeping well and discussed trazodone. Patient shared that he is not talking to his sister and remains estranged from much of his family thinking their part of this conspiracy. Boat Diesel Motor Mechanic again gently challenged patient with reality testing and this time patient was a little more amenable, saying maybe his sister's not a part of it but her definitely is....however, at writers requst, he said he would consider alternative understandings of this Mental Status Exam Mental Status Exam Narrative: Pt is alert and oriented; behavior is more calm overall; remains cooperative and friendly; patient is not in distress; dressed in casual attire with adequate hygiene and grooming; mood is described as still not feeling good and affect congruent constricted; eye contact appropriate; Speech is verbose, mildly pressured; normal volume and prosody; some psychomotor agitation present; thought process is goal directed but distracted and circumstantial; Thought content is on paranoid, delusional ideations; no SI; no HI. Denies AVH and there is no evidence of perceptual disturbance. Patients insight and judgment impaired Diagnostics Vital Signs (24Hr): Vital Signs - 24 hr 11/13/24 19:54 11/13/24 21:01 11/14/24 08:07 Temperature 98.2 F 97.9 F Pulse Rate 80 65 Respiratory Rate 16 16 Blood Pressure 161/76 H 148/67 H 123/66 Pulse Oximetry 97 99 Oxygen Delivery Method Room Air Room Air BMI result Body Mass Index 29.6 Labs 11/08/24 07:43 Medications Medications Current Medications Acetaminophen (Acetaminophen 325 Mg Tablet) 650 mg PO Q6H PRN PRN Reason: Headache/Pain, Scale 1-10 Al Hydroxide/Mg Hydroxide (Magnesium Hydrox/Alum Hydrox 30 Ml Oral.Susp) 30 ml PO Q6H PRN PRN Reason: Heartburn/Nausea Clonidine HCl (Clonidine Hcl 0.1 Mg Tablet) 0.1 mg PO DAILY@1999 [facility]; Protocol Last Admin: 11/13/24 21:01 Dose: 0.1 mg Hydroxyzine HCl (Hydroxyzine Hcl 25 Mg Tablet) 25 mg PO Q6H PRN PRN Reason: mild anxiety Magnesium Hydroxide (Milk Of Magnesia 30 Ml Oral.Susp) 30 ml PO DAILY PRN PRN Reason: Constipation Nicotine (Nicotine 21 Mg Patch.Td24) 21 mg TRANSDERMA DAILY PRN PRN Reason: Nicotine Cravings Nicotine Polacrilex (Nicotine Polacrilex 2 Mg Gum) 4 mg BUCCAL Q2H PRN PRN Reason: Nicotine Cravings Risperidone (Risperidone 2 Mg Tablet) 2 mg PO BEDTIME [facility] Last Admin: 11/13/24 21:02 Dose: 2 mg Risperidone (Risperidone 0.5 Mg Tablet) 0.5 mg PO Q4H PRN PRN Reason: agitation/internal frustration Last Admin: 11/13/24 17:37 Dose: 0.5 mg Trazodone HCl (Trazodone Hcl 100 Mg Tablet) 100 mg PO BEDTIME PRN PRN Reason: continued insomnia Allergies Allergies Allergy/AdvReac Type Severity Reaction Status Date / Time No Known Allergies Allergy Unverified 05/13/20 16:19 [No Known Allergies*] Assessment & Plan Assessment & Plan (1) Delusional disorder: Status: Acute Code(s): F22 - Delusional disorders (2) Cannabis abuse: Status: Acute Code(s): F12.10 - Cannabis abuse, uncomplicated (3) Hypertension: Status: Acute Code(s): I10 - Essential (primary) hypertension Plan Presentation: chronic paranoid delusions that for some reason has been exacerbated starting about a month ago HOSPITAL COURSE: 11/08/24- discussed using medication to address insomnia and anxiety , likely psychosis since we can not prescribe mj here- - will give olanzapine 5mg at bed- [facility] and group therapy as tolerated- 11/10 Patient sharing concerns that he is being maligned at work, expressing paranoid delusion that there is some collective conspiracy against him at work (that seems to be chronic but intermittently exacerbated). Patient says there must have been someone who filmed while at home in the bathroom and spread this video throughout work. He says he can tell because of the way peers gesture and look at him... He thinks perhaps his nephews are in on it maybe his sister... Patient says that I can not know for sure but is mostly convince because of what he perceives as coworkers gestures. Patient says that it has been so upsetting, worsening over the past month, that last week he remained balled up on the couch... Attempt at reality testing with limited success. Patient talked about conspiracy against him at great length. Patient shared how this experience is so upsetting that he has thought of suicide however he has no plan and does not want to hurt others by his actions. -Agrees to increase Zyprexa. 11/11 Pt remains with intense paranoid delusions about work, thinking there is a conspiracy to malign him at work; assumes it's because he is in line for a promotion; refers to phone being hacked...says he's getting ready to just quit if everyone is going to keep putting him in a box. -no SI; hopeful that scientific technical writer can find a way to help -agrees to increase Zyprexa to 20mg qhs. -still not sleeping great 11/12 Patient remains overwhelmingly anxious, continues with concerns about paranoid delusional thoughts, convinced he is experiencing a conspiracy at work. Patient says that he feels more internally aggravated today. Appreciates scientific technical writer trying to help but worried that his aggravation is worsening; still struggling to sleep. Discussed patient is abruptly discontinued cannabis which is likely contributory. Discussed medication and patient agreed to try Risperdal 1 mg; scientific technical writer followed up with patient awhile later and patient said this medication seemed to help; patient agrees to switch from Zyprexa to risperidone 11/13 Patient reports that Risperdal seems to be a little more helpful but that he continues to struggle; feels that daytime p.r.n. dose helps. Still not sleeping well and discussed trazodone. Patient shared that he is not talking to his sister and remains estranged from much of his family thinking their part of this conspiracy. Boat Diesel Motor Mechanic again gently challenged patient with reality testing and this time patient was a little more amenable, saying maybe his sister's not a part of it but her definitely is....however, at writers requst, he said he would consider alternative understandings of this PLAN: CV Continue Risperdal 2 mg q.h.s. Continue Risperdal 0.5 mg as a p.r.n. for daytime agitation/psychotic anxiety continue clonidine 0.1mg qhs Add trazodone 100 mg q.h.s. p.r.n. for insomnia Discontinued Zyprexa Patient educated on: diagnosis, medication risk/benefits and therapeutic strategies Informed Consent: understands, does not understand and further education needed Reason for continued inpatient stay Substantial Risk for: inability to function, rapid decompensation and med/psych decompensation Time Spent With Patient Time: Total time managing care of this patient today ____ minutes.
[2024-11-14] MEDS: risperiDONE 0.5 MG TABLET PO (09:27)
[2024-11-14] MEDS: risperiDONE 1 MG TABLET PO (13:05)
--- NOTE | 2024-11-14 14:31 | P.PNPSI_ITS ---
Subjective Subjective Date of Service: 11/14/24 Reason For Visit: unspecified Schizophrenia Spectrum and other psych Interim History: Met with patient; discussed with team Patient again struggled with sleep and did not get p.r.n. trazodone; he agrees to have it scheduled. Patient shared concern that he remains internally agitated as he said he snapped at staff for something he would normally just ignore. Patient finds Risperdal 0.5 mg useful as a p.r.n. but agrees to have 1 mg scheduled during the day to see if this helps. Mental Status Exam Mental Status Exam Narrative: Pt is alert and oriented; behavior is more calm overall; remains cooperative and friendly; patient is not in distress; dressed in casual attire with adequate hygiene and grooming; mood is described as not good and affect congruent constricted; eye contact appropriate; Speech is verbose, mildly pressured; normal volume and prosody; some psychomotor agitation present; thought process is goal directed but distracted and circumstantial; Thought content is on paranoid, delusional ideations; no SI; no HI. Denies AVH and there is no evidence of perceptual disturbance. Patients insight and judgment impaired Diagnostics Vital Signs (24Hr): Vital Signs - 24 hr 11/13/24 19:54 11/13/24 21:01 11/14/24 08:07 Temperature 98.2 F 97.9 F Pulse Rate 80 65 Respiratory Rate 16 16 Blood Pressure 161/76 H 148/67 H 123/66 Pulse Oximetry 97 99 Oxygen Delivery Method Room Air Room Air BMI result Body Mass Index 29.6 Labs 11/08/24 07:43 Medications Medications Current Medications Acetaminophen (Acetaminophen 325 Mg Tablet) 650 mg PO Q6H PRN PRN Reason: Headache/Pain, Scale 1-10 Al Hydroxide/Mg Hydroxide (Magnesium Hydrox/Alum Hydrox 30 Ml Oral.Susp) 30 ml PO Q6H PRN PRN Reason: Heartburn/Nausea Clonidine HCl (Clonidine Hcl 0.1 Mg Tablet) 0.1 mg PO DAILY@1999 [facility]; Protocol Last Admin: 11/13/24 21:01 Dose: 0.1 mg Hydroxyzine HCl (Hydroxyzine Hcl 25 Mg Tablet) 25 mg PO Q6H PRN PRN Reason: mild anxiety Magnesium Hydroxide (Milk Of Magnesia 30 Ml Oral.Susp) 30 ml PO DAILY PRN PRN Reason: Constipation Nicotine (Nicotine 21 Mg Patch.Td24) 21 mg TRANSDERMA DAILY PRN PRN Reason: Nicotine Cravings Nicotine Polacrilex (Nicotine Polacrilex 2 Mg Gum) 4 mg BUCCAL Q2H PRN PRN Reason: Nicotine Cravings Risperidone (Risperidone 2 Mg Tablet) 2 mg PO BEDTIME [facility] Last Admin: 11/13/24 21:02 Dose: 2 mg Risperidone (Risperidone 0.5 Mg Tablet) 0.5 mg PO Q4H PRN PRN Reason: agitation/internal frustration Last Admin: 11/14/24 09:27 Dose: 0.5 mg Risperidone (Risperidone 1 Mg Tablet) 1 mg PO DAILY [facility] Last Admin: 11/14/24 13:05 Dose: 1 mg Trazodone HCl (Trazodone Hcl 100 Mg Tablet) 100 mg PO BEDTIME [facility] Allergies Allergies Allergy/AdvReac Type Severity Reaction Status Date / Time No Known Allergies Allergy Unverified 05/13/20 16:19 [No Known Allergies*] Assessment & Plan Assessment & Plan (1) Delusional disorder: Status: Acute Code(s): F22 - Delusional disorders (2) Cannabis abuse: Status: Acute Code(s): F12.10 - Cannabis abuse, uncomplicated (3) Hypertension: Status: Acute Code(s): I10 - Essential (primary) hypertension Plan Presentation: chronic paranoid delusions that for some reason has been exacerbated starting about a month ago HOSPITAL COURSE: 11/08/24- discussed using medication to address insomnia and anxiety , likely psychosis since we can not prescribe mj here- - will give olanzapine 5mg at bed- [facility] and group therapy as tolerated- 11/10 Patient sharing concerns that he is being maligned at work, expressing paranoid delusion that there is some collective conspiracy against him at work (that seems to be chronic but intermittently exacerbated). Patient says there must have been someone who filmed while at home in the bathroom and spread this video throughout work. He says he can tell because of the way peers gesture and look at him... He thinks perhaps his nephews are in on it maybe his sister... Patient says that I can not know for sure but is mostly convince because of what he perceives as coworkers gestures. Patient says that it has been so upsetting, worsening over the past month, that last week he remained balled up on the couch... Attempt at reality testing with limited success. Patient talked about conspiracy against him at great length. Patient shared how this experience is so upsetting that he has thought of suicide however he has no plan and does not want to hurt others by his actions. -Agrees to increase Zyprexa. 11/11 Pt remains with intense paranoid delusions about work, thinking there is a conspiracy to malign him at work; assumes it's because he is in line for a promotion; refers to phone being hacked...says he's getting ready to just quit if everyone is going to keep putting him in a box. -no SI; hopeful that rfp writer can find a way to help -agrees to increase Zyprexa to 20mg qhs. -still not sleeping great 11/12 Patient remains overwhelmingly anxious, continues with concerns about paranoid delusional thoughts, convinced he is experiencing a conspiracy at work. Patient says that he feels more internally aggravated today. Appreciates rfp writer trying to help but worried that his aggravation is worsening; still struggling to sleep. Discussed patient is abruptly discontinued cannabis which is likely contributory. Discussed medication and patient agreed to try Risperdal 1 mg; rfp writer followed up with patient awhile later and patient said this medication seemed to help; patient agrees to switch from Zyprexa to risperidone 11/13 Patient reports that Risperdal seems to be a little more helpful but that he continues to struggle; feels that daytime p.r.n. dose helps. Still not sleeping well and discussed trazodone. Patient shared that he is not talking to his sister and remains estranged from much of his family thinking their part of this conspiracy. Roll Scale Worker again gently challenged patient with reality testing and this time patient was a little more amenable, saying maybe his sister's not a part of it but her definitely is....however, at writers requst, he said he would consider alternative understandings of this 11/14 Patient again struggled with sleep and did not get p.r.n. trazodone; he agrees to have it scheduled. Patient shared concern that he remains internally agitated as he said he snapped at staff for something he would normally just ignore. Patient finds Risperdal 0.5 mg useful as a p.r.n. but agrees to have 1 mg scheduled during the day to see if this helps. PLAN: CV Start Risperdal 1 mg daily Continue Risperdal 2 mg q.h.s. Continue Risperdal 0.5 mg as a p.r.n. for daytime agitation/psychotic anxiety continue clonidine 0.1mg qhs Add trazodone 100 mg q.h.s. p.r.n. for insomnia Discontinued Zyprexa Patient educated on: diagnosis and medication risk/benefits Informed Consent: understands, does not understand and further education needed Reason for continued inpatient stay Substantial Risk for: inability to function and med/psych decompensation Time Spent With Patient Time: Total time managing care of this patient today ____ minutes.
[2024-11-14 20:00] VITALS: BP 137/72; PULSE 75; RESP 16; TEMP 37.1; O2SAT 98
[2024-11-14] MEDS: cloNIDine HCL 0.1 MG TABLET PO (22:09)
[2024-11-14] MEDS: risperiDONE 2 MG TABLET PO (22:09)
[2024-11-14] MEDS: traZODone HCL 100 MG TABLET PO (22:10)
[2024-11-15 07:58] VITALS: BP 142/70; PULSE 61; RESP 16; TEMP 36.9; O2SAT 99
[2024-11-15] MEDS: risperiDONE 1 MG TABLET PO (08:10)
--- NOTE | 2024-11-15 09:22 | P.PNPSI_ITS ---
Subjective Subjective Date of Service: 11/15/24 Reason For Visit: unspecified Schizophrenia Spectrum and other psych Interim History: met with patient; discussed with team Patient feels that he is doing a little better but still ruminating quite a lot and says it is overall too much for him to be able to handle work. However because it is a little less patient would like to remain on current regimen for another day before going up on Risperdal. Mental Status Exam Mental Status Exam Narrative: Pt is alert and oriented; behavior is overall, cooperative and friendly; patient is not in distress; dressed in casual attire with adequate hygiene and grooming; mood is described as ok and affect congruent constricted; eye contact appropriate; Speech is verbose but not pressured; normal volume and prosody; no psychomotor agitation present; thought process is goal directed but distracted and circumstantial; Thought content is on paranoid, delusional ideations; no SI; no HI. Denies AVH and there is no evidence of perceptual disturbance. Patients insight and judgment impaired Diagnostics Vital Signs (24Hr): Vital Signs - 24 hr 11/14/24 20:00 11/15/24 07:58 Temperature 98.8 F 98.5 F Pulse Rate 75 61 Respiratory Rate 16 16 Blood Pressure 137/72 142/70 H Pulse Oximetry 98 99 Oxygen Delivery Method Room Air Room Air BMI result Body Mass Index 29.6 Labs 11/08/24 07:43 Medications Medications Current Medications Acetaminophen (Acetaminophen 325 Mg Tablet) 650 mg PO Q6H PRN PRN Reason: Headache/Pain, Scale 1-10 Al Hydroxide/Mg Hydroxide (Magnesium Hydrox/Alum Hydrox 30 Ml Oral.Susp) 30 ml PO Q6H PRN PRN Reason: Heartburn/Nausea Clonidine HCl (Clonidine Hcl 0.1 Mg Tablet) 0.1 mg PO DAILY@1999 [facility] [place]; Protocol Last Admin: 11/14/24 22:09 Dose: 0.1 mg Hydroxyzine HCl (Hydroxyzine Hcl 25 Mg Tablet) 25 mg PO Q6H PRN PRN Reason: mild anxiety Magnesium Hydroxide (Milk Of Magnesia 30 Ml Oral.Susp) 30 ml PO DAILY PRN PRN Reason: Constipation Nicotine (Nicotine 21 Mg Patch.Td24) 21 mg TRANSDERMA DAILY PRN PRN Reason: Nicotine Cravings Nicotine Polacrilex (Nicotine Polacrilex 2 Mg Gum) 4 mg BUCCAL Q2H PRN PRN Reason: Nicotine Cravings Risperidone (Risperidone 2 Mg Tablet) 2 mg PO BEDTIME [facility] Last Admin: 11/14/24 22:09 Dose: 2 mg Risperidone (Risperidone 0.5 Mg Tablet) 0.5 mg PO Q4H PRN PRN Reason: agitation/internal frustration Last Admin: 11/14/24 09:27 Dose: 0.5 mg Risperidone (Risperidone 1 Mg Tablet) 1 mg PO DAILY [facility] [place] Last Admin: 11/15/24 08:10 Dose: 1 mg Trazodone HCl (Trazodone Hcl 100 Mg Tablet) 100 mg PO BEDTIME [facility] Last Admin: 11/14/24 22:10 Dose: 100 mg Allergies Allergies Allergy/AdvReac Type Severity Reaction Status Date / Time No Known Allergies Allergy Unverified 05/13/20 16:19 [No Known Allergies*] Assessment & Plan Assessment & Plan (1) Delusional disorder: Status: Acute Code(s): F22 - Delusional disorders (2) Cannabis abuse: Status: Acute Code(s): F12.10 - Cannabis abuse, uncomplicated (3) Hypertension: Status: Acute Code(s): I10 - Essential (primary) hypertension Plan Presentation: chronic paranoid delusions that for some reason has been exacerbated starting about a month ago HOSPITAL COURSE: 11/08/24- discussed using medication to address insomnia and anxiety , likely psychosis since we can not prescribe mj here- - will give olanzapine 5mg at bed- [facility] and group therapy as tolerated- 11/10 Patient sharing concerns that he is being maligned at work, expressing paranoid delusion that there is some collective conspiracy against him at work (that seems to be chronic but intermittently exacerbated). Patient says there must have been someone who filmed while at home in the bathroom and spread this video throughout work. He says he can tell because of the way peers gesture and look at him... He thinks perhaps his nephews are in on it maybe his sister... Patient says that I can not know for sure but is mostly convince because of what he perceives as coworkers gestures. Patient says that it has been so upsetting, worsening over the past month, that last week he remained balled up on the couch... Attempt at reality testing with limited success. Patient talked about conspiracy against him at great length. Patient shared how this experience is so upsetting that he has thought of suicide however he has no plan and does not want to hurt others by his actions. -Agrees to increase Zyprexa. 11/11 Pt remains with intense paranoid delusions about work, thinking there is a conspiracy to malign him at work; assumes it's because he is in line for a promotion; refers to phone being hacked...says he's getting ready to just quit if everyone is going to keep putting him in a box. -no SI; hopeful that newswriter can find a way to help -agrees to increase Zyprexa to 20mg qhs. -still not sleeping great 11/12 Patient remains overwhelmingly anxious, continues with concerns about paranoid delusional thoughts, convinced he is experiencing a conspiracy at work. Patient says that he feels more internally aggravated today. Appreciates newswriter trying to help but worried that his aggravation is worsening; still struggling to sleep. Discussed patient is abruptly discontinued cannabis which is likely contributory. Discussed medication and patient agreed to try Risperdal 1 mg; newswriter followed up with patient awhile later and patient said this medication seemed to help; patient agrees to switch from Zyprexa to risperidone 11/13 Patient reports that Risperdal seems to be a little more helpful but that he continues to struggle; feels that daytime p.r.n. dose helps. Still not sleeping well and discussed trazodone. Patient shared that he is not talking to his sister and remains estranged from much of his family thinking their part of this conspiracy. Polymer Engineer again gently challenged patient with reality testing and this time patient was a little more amenable, saying maybe his sister's not a part of it but her definitely is....however, at writers requst, he said he would consider alternative understandings of this 11/14 Patient again struggled with sleep and did not get p.r.n. trazodone; he agrees to have it scheduled. Patient shared concern that he remains internally agitated as he said he snapped at staff for something he would normally just ignore. Patient finds Risperdal 0.5 mg useful as a p.r.n. but agrees to have 1 mg scheduled during the day to see if this helps. 11/15 continue current regimen; still ruminating on paranoid delusions and feels would be unable to handle work; will consider increasing Risperdal PLAN: CV Continue Risperdal 1 mg daily Continue Risperdal 2 mg q.h.s. Continue Risperdal 0.5 mg as a p.r.n. for daytime agitation/psychotic anxiety continue clonidine 0.1mg qhs Add trazodone 100 mg q.h.s. p.r.n. for insomnia Discontinued Zyprexa Patient educated on: diagnosis, medication risk/benefits and therapeutic strategies Informed Consent: understands, does not understand and further education needed Reason for continued inpatient stay Substantial Risk for: rapid decompensation Time Spent With Patient Time: Total time managing care of this patient today ____ minutes.
[2024-11-15] MEDS: risperiDONE 0.5 MG TABLET PO ×3 (13:13→22:43)
[2024-11-15] MEDS: hydrOXYzine HCL 25 MG TABLET PO ×2 (15:37→22:43)
[2024-11-15 20:00] VITALS: BP 157/72; PULSE 75; RESP 18; TEMP 37; O2SAT 99
[2024-11-15] MEDS: cloNIDine HCL 0.1 MG TABLET PO (20:11)
[2024-11-15] MEDS: risperiDONE 2 MG TABLET PO (20:12)
[2024-11-15] MEDS: traZODone HCL 100 MG TABLET PO (20:12)
[2024-11-16 08:00] VITALS: BP 143/69; PULSE 65; RESP 16; TEMP 36.8; O2SAT 97
[2024-11-16] MEDS: risperiDONE 1 MG TABLET PO ×2 (08:46→13:31)
--- NOTE | 2024-11-16 09:03 | P.PNPSI_ITS ---
Subjective Subjective Date of Service: 11/16/24 Reason For Visit: unspecified Schizophrenia Spectrum and other psych Interim History: met with pt; discussed with team pt lying in bed, says cannot stop ruminating on being conspired against; pt shared numerous events over years, involving family, co-workes saying how they all connect to prove there is a conspiracy against him. No SI/HI, but says if this does not get better, he'll just take off and drive somewhere away from everyone. -agrees to increase risperdal dose Mental Status Exam Mental Status Exam Narrative: Pt is alert and oriented; behavior is cooperative but isolative; patient is not in distress; dressed in casual attire with adequate hygiene and grooming; mood is described as not good and affect congruent constricted and downcast; eye contact appropriate; Speech is verbose but not pressured; normal volume and prosody; no psychomotor agitation present; thought process is goal directed but distracted and circumstantial; Thought content is on paranoid, delusional ideations; no SI; no HI. Denies AVH and there is no evidence of perceptual disturbance. Patients insight and judgment impaired Diagnostics Vital Signs (24Hr): Vital Signs - 24 hr 11/15/24 20:00 11/16/24 08:00 Temperature 98.6 F 98.3 F Pulse Rate 75 65 Respiratory Rate 18 16 Blood Pressure 157/72 H 143/69 H Pulse Oximetry 99 97 Oxygen Delivery Method Room Air Room Air BMI result Body Mass Index 29.6 Labs 11/08/24 07:43 Medications Medications Current Medications Acetaminophen (Acetaminophen 325 Mg Tablet) 650 mg PO Q6H PRN PRN Reason: Headache/Pain, Scale 1-10 Al Hydroxide/Mg Hydroxide (Magnesium Hydrox/Alum Hydrox 30 Ml Oral.Susp) 30 ml PO Q6H PRN PRN Reason: Heartburn/Nausea Clonidine HCl (Clonidine Hcl 0.1 Mg Tablet) 0.1 mg PO DAILY@1999 [facility]; Protocol Last Admin: 11/15/24 20:11 Dose: 0.1 mg Hydroxyzine HCl (Hydroxyzine Hcl 25 Mg Tablet) 25 mg PO Q6H PRN PRN Reason: mild anxiety Last Admin: 11/15/24 22:43 Dose: 25 mg Magnesium Hydroxide (Milk Of Magnesia 30 Ml Oral.Susp) 30 ml PO DAILY PRN PRN Reason: Constipation Nicotine (Nicotine 21 Mg Patch.Td24) 21 mg TRANSDERMA DAILY PRN PRN Reason: Nicotine Cravings Nicotine Polacrilex (Nicotine Polacrilex 2 Mg Gum) 4 mg BUCCAL Q2H PRN PRN Reason: Nicotine Cravings Risperidone (Risperidone 2 Mg Tablet) 2 mg PO BEDTIME [facility] Last Admin: 11/15/24 20:12 Dose: 2 mg Risperidone (Risperidone 0.5 Mg Tablet) 0.5 mg PO Q4H PRN PRN Reason: agitation/internal frustration Last Admin: 11/15/24 22:43 Dose: 0.5 mg Risperidone (Risperidone 1 Mg Tablet) 1 mg PO DAILY [facility] Last Admin: 11/16/24 08:46 Dose: 1 mg Trazodone HCl (Trazodone Hcl 100 Mg Tablet) 100 mg PO BEDTIME [facility] Last Admin: 11/15/24 20:12 Dose: 100 mg Allergies Allergies Allergy/AdvReac Type Severity Reaction Status Date / Time No Known Allergies Allergy Unverified 05/13/20 16:19 [No Known Allergies*] Assessment & Plan Assessment & Plan (1) Delusional disorder: Status: Acute Code(s): F22 - Delusional disorders (2) Cannabis abuse: Status: Acute Code(s): F12.10 - Cannabis abuse, uncomplicated (3) Hypertension: Status: Acute Code(s): I10 - Essential (primary) hypertension Plan Presentation: chronic paranoid delusions that for some reason has been exacerbated starting about a month ago HOSPITAL COURSE: 11/08/24- discussed using medication to address insomnia and anxiety , likely psychosis since we can not prescribe mj here- - will give olanzapine 5mg at bed- [facility] and group therapy as tolerated- 11/10 Patient sharing concerns that he is being maligned at work, expressing paranoid delusion that there is some collective conspiracy against him at work (that seems to be chronic but intermittently exacerbated). Patient says there must have been someone who filmed while at home in the bathroom and spread this video throughout work. He says he can tell because of the way peers gesture and look at him... He thinks perhaps his nephews are in on it maybe his sister... Patient says that I can not know for sure but is mostly convince because of what he perceives as coworkers gestures. Patient says that it has been so upsetting, worsening over the past month, that last week he remained balled up on the couch... Attempt at reality testing with limited success. Patient talked about conspiracy against him at great length. Patient shared how this experience is so upsetting that he has thought of suicide however he has no plan and does not want to hurt others by his actions. -Agrees to increase Zyprexa. 11/11 Pt remains with intense paranoid delusions about work, thinking there is a conspiracy to malign him at work; assumes it's because he is in line for a promotion; refers to phone being hacked...says he's getting ready to just quit if everyone is going to keep putting him in a box. -no SI; hopeful that short story writer can find a way to help -agrees to increase Zyprexa to 20mg qhs. -still not sleeping great 11/12 Patient remains overwhelmingly anxious, continues with concerns about paranoid delusional thoughts, convinced he is experiencing a conspiracy at work. Patient says that he feels more internally aggravated today. Appreciates short story writer trying to help but worried that his aggravation is worsening; still struggling to sleep. Discussed patient is abruptly discontinued cannabis which is likely contributory. Discussed medication and patient agreed to try Risperdal 1 mg; short story writer followed up with patient awhile later and patient said this medication seemed to help; patient agrees to switch from Zyprexa to risperidone 11/13 Patient reports that Risperdal seems to be a little more helpful but that he continues to struggle; feels that daytime p.r.n. dose helps. Still not sleeping well and discussed trazodone. Patient shared that he is not talking to his sister and remains estranged from much of his family thinking their part of this conspiracy. City Detective again gently challenged patient with reality testing and this time patient was a little more amenable, saying maybe his sister's not a part of it but her definitely is....however, at writers requst, he said he would consider alternative understandings of this 11/14 Patient again struggled with sleep and did not get p.r.n. trazodone; he agrees to have it scheduled. Patient shared concern that he remains internally agitated as he said he snapped at staff for something he would normally just ignore. Patient finds Risperdal 0.5 mg useful as a p.r.n. but agrees to have 1 mg scheduled during the day to see if this helps. 11/15 continue current regimen; still ruminating on paranoid delusions and feels would be unable to handle work; will consider increasing Risperdal 11/16 pt in despair; plagued with paranoid delusions; agrees to increase risperdal PLAN: CV Continue Risperdal 1 mg bid 0900,1300 Continue Risperdal 2 mg q.h.s. Continue Risperdal 0.5 mg as a p.r.n. for daytime agitation/psychotic anxiety continue clonidine 0.1mg qhs Add trazodone 100 mg q.h.s. p.r.n. for insomnia Discontinued Zyprexa Patient educated on: diagnosis, medication risk/benefits and therapeutic strategies Informed Consent: understands Reason for continued inpatient stay Substantial Risk for: rapid decompensation Time Spent With Patient Time: Total time managing care of this patient today ____ minutes.
[2024-11-16] MEDS: risperiDONE 0.5 MG TABLET PO ×2 (11:18→18:47)
[2024-11-16 19:38] VITALS: BP 159/71; PULSE 81; TEMP 36.5; O2SAT 98
[2024-11-16 20:07] VITALS: BP 159/71
[2024-11-16] MEDS: risperiDONE 2 MG TABLET PO (20:07)
[2024-11-16] MEDS: traZODone HCL 100 MG TABLET PO (20:07)
[2024-11-16] MEDS: cloNIDine HCL 0.1 MG TABLET PO (20:07)
[2024-11-17 08:11] VITALS: BP 143/66; PULSE 74; TEMP 36.4; O2SAT 97
[2024-11-17] MEDS: risperiDONE 1 MG TABLET PO ×2 (08:25→14:34)
--- NOTE | 2024-11-17 09:58 | P.PNPSI_ITS ---
Subjective Subjective Date of Service: 11/17/24 Reason For Visit: unspecified Schizophrenia Spectrum and other psych Interim History: Met with patient; discussed with team Patient reports that today he is feeling a little better. He said today, for the 1st time he has doing better with clearing out his mind, not ruminating and focusing on the task at hand. He is hopeful that this will continue though he is sure he is not yet at a place where he would be able to remain this way at work. Patient asked to go to partial day program. Otherwise patient reports sleeping better. Patient shared about things he studied in college, history, economics; talked about taking care of his ill mother. Mental Status Exam Mental Status Exam Narrative: Pt is alert and oriented; behavior is cooperative, friendly, calm, more social; patient is not in distress; dressed in casual attire with adequate hygiene and grooming; mood is described as better and affect congruent, brighter, more calm; eye contact appropriate; Speech is verbose but not pressured; normal volume and prosody; no psychomotor agitation present; thought process is goal directed but distracted and circumstantial; Thought content is on paranoid, delusional ideations; no SI; no HI. Denies AVH and there is no evidence of perceptual disturbance. Patients insight and judgment impaired Diagnostics Vital Signs (24Hr): Vital Signs - 24 hr 11/16/24 19:38 11/16/24 20:07 11/17/24 08:11 Temperature 97.7 F 97.6 F Pulse Rate 81 74 Blood Pressure 159/71 H 159/71 H 143/66 H Pulse Oximetry 98 97 Oxygen Delivery Method Room Air Room Air BMI result Body Mass Index 29.6 Labs 11/08/24 07:43 Medications Medications Current Medications Acetaminophen (Acetaminophen 325 Mg Tablet) 650 mg PO Q6H PRN PRN Reason: Headache/Pain, Scale 1-10 Al Hydroxide/Mg Hydroxide (Magnesium Hydrox/Alum Hydrox 30 Ml Oral.Susp) 30 ml PO Q6H PRN PRN Reason: Heartburn/Nausea Clonidine HCl (Clonidine Hcl 0.1 Mg Tablet) 0.1 mg PO DAILY@1999 [facility]; Protocol Last Admin: 11/16/24 20:07 Dose: 0.1 mg Hydroxyzine HCl (Hydroxyzine Hcl 25 Mg Tablet) 25 mg PO Q6H PRN PRN Reason: mild anxiety Last Admin: 11/15/24 22:43 Dose: 25 mg Magnesium Hydroxide (Milk Of Magnesia 30 Ml Oral.Susp) 30 ml PO DAILY PRN PRN Reason: Constipation Nicotine (Nicotine 21 Mg Patch.Td24) 21 mg TRANSDERMA DAILY PRN PRN Reason: Nicotine Cravings Nicotine Polacrilex (Nicotine Polacrilex 2 Mg Gum) 4 mg BUCCAL Q2H PRN PRN Reason: Nicotine Cravings Risperidone (Risperidone 2 Mg Tablet) 2 mg PO BEDTIME [facility] Last Admin: 11/16/24 20:07 Dose: 2 mg Risperidone (Risperidone 0.5 Mg Tablet) 0.5 mg PO Q4H PRN PRN Reason: agitation/internal frustration Last Admin: 11/16/24 18:47 Dose: 0.5 mg Risperidone (Risperidone 1 Mg Tablet) 1 mg PO BID@0900,1300 [facility] Last Admin: 11/17/24 08:25 Dose: 1 mg Trazodone HCl (Trazodone Hcl 100 Mg Tablet) 100 mg PO BEDTIME [facility] Last Admin: 11/16/24 20:07 Dose: 100 mg Allergies Allergies Allergy/AdvReac Type Severity Reaction Status Date / Time No Known Allergies Allergy Unverified 05/13/20 16:19 [No Known Allergies*] Assessment & Plan Assessment & Plan (1) Delusional disorder: Status: Acute Code(s): F22 - Delusional disorders (2) Cannabis abuse: Status: Acute Code(s): F12.10 - Cannabis abuse, uncomplicated (3) Hypertension: Status: Acute Code(s): I10 - Essential (primary) hypertension Plan Presentation: chronic paranoid delusions that for some reason has been exacerbated starting about a month ago HOSPITAL COURSE: 11/08/24- discussed using medication to address insomnia and anxiety , likely psychosis since we can not prescribe mj here- - will give olanzapine 5mg at bed- [facility] and group therapy as tolerated- 11/10 Patient sharing concerns that he is being maligned at work, expressing paranoid delusion that there is some collective conspiracy against him at work (that seems to be chronic but intermittently exacerbated). Patient says there must have been someone who filmed while at home in the bathroom and spread this video throughout work. He says he can tell because of the way peers gesture and look at him... He thinks perhaps his nephews are in on it maybe his sister... Patient says that I can not know for sure but is mostly convince because of what he perceives as coworkers gestures. Patient says that it has been so upsetting, worsening over the past month, that last week he remained balled up on the couch... Attempt at reality testing with limited success. Patient talked about conspiracy against him at great length. Patient shared how this experience is so upsetting that he has thought of suicide however he has no plan and does not want to hurt others by his actions. -Agrees to increase Zyprexa. 11/11 Pt remains with intense paranoid delusions about work, thinking there is a conspiracy to malign him at work; assumes it's because he is in line for a promotion; refers to phone being hacked...says he's getting ready to just quit if everyone is going to keep putting him in a box. -no SI; hopeful that television script writer can find a way to help -agrees to increase Zyprexa to 20mg qhs. -still not sleeping great 11/12 Patient remains overwhelmingly anxious, continues with concerns about paranoid delusional thoughts, convinced he is experiencing a conspiracy at work. Patient says that he feels more internally aggravated today. Appreciates television script writer trying to help but worried that his aggravation is worsening; still struggling to sleep. Discussed patient is abruptly discontinued cannabis which is likely contributory. Discussed medication and patient agreed to try Risperdal 1 mg; television script writer followed up with patient awhile later and patient said this medication seemed to help; patient agrees to switch from Zyprexa to risperidone 11/13 Patient reports that Risperdal seems to be a little more helpful but that he continues to struggle; feels that daytime p.r.n. dose helps. Still not sleeping well and discussed trazodone. Patient shared that he is not talking to his sister and remains estranged from much of his family thinking their part of this conspiracy. Facilities Technician again gently challenged patient with reality testing and this time patient was a little more amenable, saying maybe his sister's not a part of it but her definitely is....however, at writers requst, he said he would consider alternative understandings of this 11/14 Patient again struggled with sleep and did not get p.r.n. trazodone; he agrees to have it scheduled. Patient shared concern that he remains internally agitated as he said he snapped at staff for something he would normally just ignore. Patient finds Risperdal 0.5 mg useful as a p.r.n. but agrees to have 1 mg scheduled during the day to see if this helps. 11/15 continue current regimen; still ruminating on paranoid delusions and feels would be unable to handle work; will consider increasing Risperdal 11/16 pt in despair; plagued with paranoid delusions; agrees to increase risperdal 11/17 Patient reports that today he is feeling a little better. He said today, for the 1st time he has doing better with clearing out his mind, not ruminating and focusing on the task at hand. He is hopeful that this will continue though he is sure he is not yet at a place where he would be able to remain this way at work. Patient asked to go to partial day program. Otherwise patient reports sleeping better. Patient shared about things he studied in college, history, economics; talked about taking care of his ill mother. -continue treatment plan PLAN: CV Continue Risperdal 1 mg bid 0900,1300 Continue Risperdal 2 mg q.h.s. Continue Risperdal 0.5 mg as a p.r.n. for daytime agitation/psychotic anxiety continue clonidine 0.1mg qhs Add trazodone 100 mg q.h.s. p.r.n. for insomnia Discontinued Zyprexa Patient educated on: diagnosis, medication risk/benefits and therapeutic strategies Informed Consent: understands, does not understand and further education needed Reason for continued inpatient stay Substantial Risk for: rapid decompensation Time Spent With Patient Time: Total time managing care of this patient today ____ minutes.
[2024-11-17 19:48] VITALS: BP 141/61; PULSE 83; TEMP 36.9; O2SAT 97
[2024-11-17 20:34] VITALS: BP 141/61
[2024-11-17] MEDS: risperiDONE 2 MG TABLET PO (20:34)
[2024-11-17] MEDS: cloNIDine HCL 0.1 MG TABLET PO (20:34)
[2024-11-17] MEDS: traZODone HCL 100 MG TABLET PO (20:35)
[2024-11-18 07:51] VITALS: BP 139/62; PULSE 67; RESP 16; TEMP 36.1; O2SAT 99
[2024-11-18] MEDS: risperiDONE 1 MG TABLET PO ×2 (08:27→13:12)
--- NOTE | 2024-11-18 13:05 | P.PNPSI_ITS ---
Subjective Subjective Date of Service: 11/18/24 Reason For Visit: unspecified Schizophrenia Spectrum and other psych Interim History: met with patient; discussed with team pt says he again is feeling better and more able to push out ruminating thoughts and focus on what he wants to. Sleeping better; tolerating medication well Mental Status Exam Mental Status Exam Narrative: Pt is alert and oriented; behavior is cooperative, friendly, calm, more social; patient is not in distress; dressed in casual attire with adequate hygiene and grooming; mood is described as better and affect congruent, brighter, more calm; eye contact appropriate; Speech is verbose but not pressured; normal volume and prosody; no psychomotor agitation present; thought process is goal directed but distracted and circumstantial; Thought content is on paranoid, delusional ideations; no SI; no HI. Denies AVH and there is no evidence of perceptual disturbance. Patients insight and judgment impaired but improved Diagnostics Vital Signs (24Hr): Vital Signs - 24 hr 11/17/24 19:48 11/17/24 20:34 11/18/24 07:51 Temperature 98.5 F 96.9 F Pulse Rate 83 67 Respiratory Rate 16 Blood Pressure 141/61 H 141/61 H 139/62 Pulse Oximetry 97 99 Oxygen Delivery Method Room Air Room Air BMI result Body Mass Index 29.6 Labs 11/08/24 07:43 Medications Medications Current Medications Acetaminophen (Acetaminophen 325 Mg Tablet) 650 mg PO Q6H PRN PRN Reason: Headache/Pain, Scale 1-10 Al Hydroxide/Mg Hydroxide (Magnesium Hydrox/Alum Hydrox 30 Ml Oral.Susp) 30 ml PO Q6H PRN PRN Reason: Heartburn/Nausea Clonidine HCl (Clonidine Hcl 0.1 Mg Tablet) 0.1 mg PO DAILY@1999 [facility]; Protocol Last Admin: 11/17/24 20:34 Dose: 0.1 mg Hydroxyzine HCl (Hydroxyzine Hcl 25 Mg Tablet) 25 mg PO Q6H PRN PRN Reason: mild anxiety Last Admin: 11/15/24 22:43 Dose: 25 mg Magnesium Hydroxide (Milk Of Magnesia 30 Ml Oral.Susp) 30 ml PO DAILY PRN PRN Reason: Constipation Nicotine (Nicotine 21 Mg Patch.Td24) 21 mg TRANSDERMA DAILY PRN PRN Reason: Nicotine Cravings Nicotine Polacrilex (Nicotine Polacrilex 2 Mg Gum) 4 mg BUCCAL Q2H PRN PRN Reason: Nicotine Cravings Risperidone (Risperidone 2 Mg Tablet) 2 mg PO BEDTIME [facility] Last Admin: 11/17/24 20:34 Dose: 2 mg Risperidone (Risperidone 0.5 Mg Tablet) 0.5 mg PO Q4H PRN PRN Reason: agitation/internal frustration Last Admin: 11/16/24 18:47 Dose: 0.5 mg Risperidone (Risperidone 1 Mg Tablet) 1 mg PO BID@0900,1300 [facility] Last Admin: 11/18/24 08:27 Dose: 1 mg Trazodone HCl (Trazodone Hcl 100 Mg Tablet) 100 mg PO BEDTIME [facility] Last Admin: 11/17/24 20:35 Dose: 100 mg Allergies Allergies Allergy/AdvReac Type Severity Reaction Status Date / Time No Known Allergies Allergy Unverified 05/13/20 16:19 [No Known Allergies*] Assessment & Plan Assessment & Plan (1) Delusional disorder: Status: Acute Code(s): F22 - Delusional disorders (2) Cannabis abuse: Status: Acute Code(s): F12.10 - Cannabis abuse, uncomplicated (3) Hypertension: Status: Acute Code(s): I10 - Essential (primary) hypertension Plan Presentation: chronic paranoid delusions that for some reason has been exacerbated starting about a month ago HOSPITAL COURSE: 11/08/24- discussed using medication to address insomnia and anxiety , likely psychosis since we can not prescribe mj here- - will give olanzapine 5mg at bed- [facility] and group therapy as tolerated- 11/10 Patient sharing concerns that he is being maligned at work, expressing paranoid delusion that there is some collective conspiracy against him at work (that seems to be chronic but intermittently exacerbated). Patient says there must have been someone who filmed while at home in the bathroom and spread this video throughout work. He says he can tell because of the way peers gesture and look at him... He thinks perhaps his nephews are in on it maybe his sister... Patient says that I can not know for sure but is mostly convince because of what he perceives as coworkers gestures. Patient says that it has been so upsetting, worsening over the past month, that last week he remained balled up on the couch... Attempt at reality testing with limited success. Patient talked about conspiracy against him at great length. Patient shared how this experience is so upsetting that he has thought of suicide however he has no plan and does not want to hurt others by his actions. -Agrees to increase Zyprexa. 11/11 Pt remains with intense paranoid delusions about work, thinking there is a conspiracy to malign him at work; assumes it's because he is in line for a promotion; refers to phone being hacked...says he's getting ready to just quit if everyone is going to keep putting him in a box. -no SI; hopeful that radio script writer can find a way to help -agrees to increase Zyprexa to 20mg qhs. -still not sleeping great 11/12 Patient remains overwhelmingly anxious, continues with concerns about paranoid delusional thoughts, convinced he is experiencing a conspiracy at work. Patient says that he feels more internally aggravated today. Appreciates radio script writer trying to help but worried that his aggravation is worsening; still struggling to sleep. Discussed patient is abruptly discontinued cannabis which is likely contributory. Discussed medication and patient agreed to try Risperdal 1 mg; radio script writer followed up with patient awhile later and patient said this medication seemed to help; patient agrees to switch from Zyprexa to risperidone 11/13 Patient reports that Risperdal seems to be a little more helpful but that he continues to struggle; feels that daytime p.r.n. dose helps. Still not sleeping well and discussed trazodone. Patient shared that he is not talking to his sister and remains estranged from much of his family thinking their part of this conspiracy. Sr. Pricing Analyst again gently challenged patient with reality testing and this time patient was a little more amenable, saying maybe his sister's not a part of it but her definitely is....however, at writers requst, he said he would consider alternative understandings of this 11/14 Patient again struggled with sleep and did not get p.r.n. trazodone; he agrees to have it scheduled. Patient shared concern that he remains internally agitated as he said he snapped at staff for something he would normally just ignore. Patient finds Risperdal 0.5 mg useful as a p.r.n. but agrees to have 1 mg scheduled during the day to see if this helps. 11/15 continue current regimen; still ruminating on paranoid delusions and feels would be unable to handle work; will consider increasing Risperdal 11/16 pt in despair; plagued with paranoid delusions; agrees to increase risperdal 11/17 Patient reports that today he is feeling a little better. He said today, for the 1st time he has doing better with clearing out his mind, not ruminating and focusing on the task at hand. He is hopeful that this will continue though he is sure he is not yet at a place where he would be able to remain this way at work. Patient asked to go to partial day program. Otherwise patient reports sleeping better. Patient shared about things he studied in college, history, economics; talked about taking care of his ill mother. -continue treatment plan 11/18 pt says he again is feeling better and more able to push out ruminating thoughts and focus on what he wants to. Sleeping better; tolerating medication well PLAN: CV Continue Risperdal 1 mg bid 0900,1300 Continue Risperdal 2 mg q.h.s. Continue Risperdal 0.5 mg as a p.r.n. for daytime agitation/psychotic anxiety continue clonidine 0.1mg qhs Add trazodone 100 mg q.h.s. p.r.n. for insomnia Discontinued Zyprexa Patient educated on: diagnosis, medication risk/benefits and therapeutic strategies Informed Consent: understands Reason for continued inpatient stay Substantial Risk for: stable for discharge and med/psych decompensation Time Spent With Patient Time: Total time managing care of this patient today ____ minutes.
[2024-11-18 20:00] VITALS: BP 144/81; PULSE 97; RESP 16; TEMP 37.3; O2SAT 99
[2024-11-18 21:58] VITALS: BP 156/70
[2024-11-18] MEDS: cloNIDine HCL 0.1 MG TABLET PO (21:58)
[2024-11-18] MEDS: risperiDONE 2 MG TABLET PO (21:59)
[2024-11-18] MEDS: traZODone HCL 100 MG TABLET PO (21:59)
[2024-11-19 07:45] VITALS: BP 138/65; PULSE 73; RESP 16; TEMP 36.6; O2SAT 97
[2024-11-19] MEDS: risperiDONE 1 MG TABLET PO ×2 (08:08→12:50)
--- NOTE | 2024-11-19 09:57 | P.PNPSI_ITS ---
Subjective Subjective Date of Service: 11/19/24 Reason For Visit: unspecified Schizophrenia Spectrum and other psych Interim History: Met with patient; discussed with team Patient remains doing much better, able to ignore concerns about conspiracy and just focus on task at hand; patient feels that it will be helpful if he can attend partial day program but is also considering if he is ready to go back to work He feels a little drowsy during the day and after discussion, patient agrees to move Risperdal dose all to bedtime. Discussed smoking sensation and patient feels that MAT is more triggering to smoking it does not want replacement. Mental Status Exam Mental Status Exam Narrative: Pt is alert and oriented; behavior is cooperative, friendly, calm, more social; patient is not in distress; dressed in casual attire with adequate hygiene and grooming; mood is described as good and affect congruent, brighter, more calm; eye contact appropriate; Speech is verbose but not pressured; normal volume and prosody; no psychomotor agitation present; thought process is goal directed but distracted and circumstantial; Thought content is on paranoid, delusional ideations; no SI; no HI. Denies AVH and there is no evidence of perceptual disturbance. Patients insight and judgment impaired but improved, adequate and at baseline Diagnostics Vital Signs (24Hr): Vital Signs - 24 hr 11/18/24 20:00 11/18/24 21:58 11/19/24 07:45 Temperature 99.1 F 97.9 F Pulse Rate 97 73 Respiratory Rate 16 16 Blood Pressure 144/81 H 156/70 H 138/65 Pulse Oximetry 99 97 Oxygen Delivery Method Room Air Room Air BMI result Body Mass Index 29.6 Labs 11/08/24 07:43 Medications Medications Current Medications Acetaminophen (Acetaminophen 325 Mg Tablet) 650 mg PO Q6H PRN PRN Reason: Headache/Pain, Scale 1-10 Al Hydroxide/Mg Hydroxide (Magnesium Hydrox/Alum Hydrox 30 Ml Oral.Susp) 30 ml PO Q6H PRN PRN Reason: Heartburn/Nausea Clonidine HCl (Clonidine Hcl 0.1 Mg Tablet) 0.1 mg PO DAILY@[facility]; Protocol Last Admin: 11/18/24 21:58 Dose: 0.1 mg Hydroxyzine HCl (Hydroxyzine Hcl 25 Mg Tablet) 25 mg PO Q6H PRN PRN Reason: mild anxiety Last Admin: 11/15/24 22:43 Dose: 25 mg Magnesium Hydroxide (Milk Of Magnesia 30 Ml Oral.Susp) 30 ml PO DAILY PRN PRN Reason: Constipation Nicotine (Nicotine 21 Mg Patch.Td24) 21 mg TRANSDERMA DAILY PRN PRN Reason: Nicotine Cravings Nicotine Polacrilex (Nicotine Polacrilex 2 Mg Gum) 4 mg BUCCAL Q2H PRN PRN Reason: Nicotine Cravings Risperidone (Risperidone 2 Mg Tablet) 2 mg PO BEDTIME [facility] Last Admin: 11/18/24 21:59 Dose: 2 mg Risperidone (Risperidone 0.5 Mg Tablet) 0.5 mg PO Q4H PRN PRN Reason: agitation/internal frustration Last Admin: 11/16/24 18:47 Dose: 0.5 mg Risperidone (Risperidone 1 Mg Tablet) 1 mg PO BID@0900,1300 [facility] Last Admin: 11/19/24 08:08 Dose: 1 mg Trazodone HCl (Trazodone Hcl 100 Mg Tablet) 100 mg PO BEDTIME [facility] Last Admin: 11/18/24 21:59 Dose: 100 mg Allergies Allergies Allergy/AdvReac Type Severity Reaction Status Date / Time No Known Allergies Allergy Unverified 05/13/20 16:19 [No Known Allergies*] Assessment & Plan Assessment & Plan (1) Delusional disorder: Status: Acute Code(s): F22 - Delusional disorders (2) Cannabis abuse: Status: Acute Code(s): F12.10 - Cannabis abuse, uncomplicated (3) Hypertension: Status: Acute Code(s): I10 - Essential (primary) hypertension Plan Presentation: chronic paranoid delusions that for some reason has been exacerbated starting about a month ago HOSPITAL COURSE: 11/08/24- discussed using medication to address insomnia and anxiety , likely psychosis since we can not prescribe mj here- - will give olanzapine 5mg at bed[facility] as tolerated- 11/10 Patient sharing concerns that he is being maligned at work, expressing paranoid delusion that there is some collective conspiracy against him at work (that seems to be chronic but intermittently exacerbated). Patient says there must have been someone who filmed while at home in the bathroom and spread this video throughout work. He says he can tell because of the way peers gesture and look at him... He thinks perhaps his nephews are in on it maybe his sister... Patient says that I can not know for sure but is mostly convince because of what he perceives as coworkers gestures. Patient says that it has been so upsetting, worsening over the past month, that last week he remained balled up on the couch... Attempt at reality testing with limited success. Patient talked about conspiracy against him at great length. Patient shared how this experience is so upsetting that he has thought of suicide however he has no plan and does not want to hurt others by his actions. -Agrees to increase Zyprexa. 11/11 Pt remains with intense paranoid delusions about work, thinking there is a conspiracy to malign him at work; assumes it's because he is in line for a promotion; refers to phone being hacked...says he's getting ready to just quit if everyone is going to keep putting him in a box. -no SI; hopeful that commercial underwriter can find a way to help -agrees to increase Zyprexa to 20mg qhs. -still not sleeping great 11/12 Patient remains overwhelmingly anxious, continues with concerns about paranoid delusional thoughts, convinced he is experiencing a conspiracy at work. Patient says that he feels more internally aggravated today. Appreciates commercial underwriter trying to help but worried that his aggravation is worsening; still struggling to sleep. Discussed patient is abruptly discontinued cannabis which is likely contributory. Discussed medication and patient agreed to try Risperdal 1 mg; commercial underwriter followed up with patient awhile later and patient said this medication seemed to help; patient agrees to switch from Zyprexa to risperidone 11/13 Patient reports that Risperdal seems to be a little more helpful but that he continues to struggle; feels that daytime p.r.n. dose helps. Still not sleeping well and discussed trazodone. Patient shared that he is not talking to his sister and remains estranged from much of his family thinking their part of this conspiracy. Gi Asst again gently challenged patient with reality testing and this time patient was a little more amenable, saying maybe his sister's not a part of it but her definitely is....however, at writers requst, he said he would consider alternative understandings of this 11/14 Patient again struggled with sleep and did not get p.r.n. trazodone; he agrees to have it scheduled. Patient shared concern that he remains internally agitated as he said he snapped at staff for something he would normally just ignore. Patient finds Risperdal 0.5 mg useful as a p.r.n. but agrees to have 1 mg scheduled during the day to see if this helps. 11/15 continue current regimen; still ruminating on paranoid delusions and feels would be unable to handle work; will consider increasing Risperdal 11/16 pt in despair; plagued with paranoid delusions; agrees to increase risperdal 11/17 Patient reports that today he is feeling a little better. He said today, for the 1st time he has doing better with clearing out his mind, not ruminating and focusing on the task at hand. He is hopeful that this will continue though he is sure he is not yet at a place where he would be able to remain this way at work. Patient asked to go to partial day program. Otherwise patient reports sleeping better. Patient shared about things he studied in college, history, economics; talked about taking care of his ill mother. -continue treatment plan 11/18 pt says he again is feeling better and more able to push out ruminating thoughts and focus on what he wants to. Sleeping better; tolerating medication well 11/19 Patient remains doing much better, able to ignore concerns about conspiracy and just focus on task at hand; patient feels that it will be helpful if he can attend partial day program but is also considering if he is ready to go back to work He feels a little drowsy during the day and after discussion, patient agrees to move Risperdal dose all to bedtime. Discussed smoking sensation and patient feels that MAT is more triggering to smoking it does not want replacement. -restarting amlodipine PLAN: CV Continue Risperdal 4 mg q.h.s. Continue Risperdal 0.5 mg as a p.r.n. for daytime agitation/psychotic anxiety continue clonidine 0.1mg qhs Add trazodone 100 mg q.h.s. p.r.n. for insomnia Discontinued Zyprexa Patient educated on: diagnosis, medication risk/benefits and therapeutic strategies Informed Consent: understands Reason for continued inpatient stay Substantial Risk for: stable for discharge Time Spent With Patient Time: Total time managing care of this patient today ____ minutes.
[2024-11-19 19:52] VITALS: BP 155/70; PULSE 80; RESP 16; TEMP 36.4; O2SAT 100
[2024-11-19 21:56] VITALS: BP 150/73
[2024-11-19] MEDS: cloNIDine HCL 0.1 MG TABLET PO (21:56)
[2024-11-19] MEDS: risperiDONE 2 MG TABLET PO (21:56)
[2024-11-19] MEDS: traZODone HCL 100 MG TABLET PO (21:57)
[2024-11-20 08:00] VITALS: BP 144/57; PULSE 68; TEMP 36.9; O2SAT 98
[2024-11-20] MEDS: amLODIPine Besylate 5 MG TABLET PO (08:46)
--- NOTE | 2024-11-20 13:39 | HO.PSYCHPN ---
Subjective Subjective Date of Service: 11/20/24 Reason For Visit: unspecified Schizophrenia Spectrum and other psych Interim History: Active on unit. pt reports feeling good and ready to leave ; denies SI/HI/VH/AH. Patient reports he has been trying to keep his mind busy by going to groups and being social with peers. denies any issues at this time. continue current tx plan. Medication Compliance: Yes Attending Groups: Yes Mental Status Exam Mental Status Exam Narrative: Pt is alert and oriented; behavior is cooperative, friendly and calm; dressed in casual attire; mood is described as good ; eye contact appropriate; Speech is normal rate, volume and not pressured; thought process is organized; Thought content is on discharge; denies SI/HI/VH/AH. Diagnostics Vital Signs (24Hr): Vital Signs - 24 hr 11/19/24 19:52 11/19/24 21:56 11/20/24 08:00 Temperature 97.6 F 98.5 F Pulse Rate 80 68 Respiratory Rate 16 Blood Pressure 155/70 H 150/73 H 144/57 H Pulse Oximetry 100 98 Oxygen Delivery Method Room Air Room Air BMI result Body Mass Index 29.6 Labs 11/08/24 07:43 Medications Medications Current Medications Acetaminophen (Acetaminophen 325 Mg Tablet) 650 mg PO Q6H PRN PRN Reason: Headache/Pain, Scale 1-10 Al Hydroxide/Mg Hydroxide (Magnesium Hydrox/Alum Hydrox 30 Ml Oral.Susp) 30 ml PO Q6H PRN PRN Reason: Heartburn/Nausea Amlodipine Besylate (Amlodipine Besylate 5 Mg Tablet) 5 mg PO DAILY [facility]; Protocol Last Admin: 11/20/24 08:46 Dose: 5 mg Clonidine HCl (Clonidine Hcl 0.1 Mg Tablet) 0.1 mg PO DAILY@1999 [facility]; Protocol Last Admin: 11/19/24 21:56 Dose: 0.1 mg Hydroxyzine HCl (Hydroxyzine Hcl 25 Mg Tablet) 25 mg PO Q6H PRN PRN Reason: mild anxiety Last Admin: 11/15/24 22:43 Dose: 25 mg Magnesium Hydroxide (Milk Of Magnesia 30 Ml Oral.Susp) 30 ml PO DAILY PRN PRN Reason: Constipation Nicotine (Nicotine 21 Mg Patch.Td24) 21 mg TRANSDERMA DAILY PRN PRN Reason: Nicotine Cravings Nicotine Polacrilex (Nicotine Polacrilex 2 Mg Gum) 4 mg BUCCAL Q2H PRN PRN Reason: Nicotine Cravings Risperidone (Risperidone 0.5 Mg Tablet) 0.5 mg PO Q4H PRN PRN Reason: agitation/internal frustration Last Admin: 11/16/24 18:47 Dose: 0.5 mg Risperidone (Risperidone 2 Mg Tablet) 4 mg PO BEDTIME [facility] Trazodone HCl (Trazodone Hcl 100 Mg Tablet) 100 mg PO BEDTIME [facility] Last Admin: 11/19/24 21:57 Dose: 100 mg Allergies Allergies Allergy/AdvReac Type Severity Reaction Status Date / Time No Known Allergies Allergy Unverified 05/13/20 16:19 [No Known Allergies*] Assessment & Plan Assessment & Plan (1) Delusional disorder: Status: Acute Code(s): F22 - Delusional disorders (2) Cannabis abuse: Status: Acute Code(s): F12.10 - Cannabis abuse, uncomplicated (3) Hypertension: Status: Acute Code(s): I10 - Essential (primary) hypertension Plan Presentation: chronic paranoid delusions that for some reason has been exacerbated starting about a month ago HOSPITAL COURSE: 11/08/24- discussed using medication to address insomnia and anxiety , likely psychosis since we can not prescribe mj here- - will give olanzapine 5mg at bed- [facility] and group therapy as tolerated- 11/10 Patient sharing concerns that he is being maligned at work, expressing paranoid delusion that there is some collective conspiracy against him at work (that seems to be chronic but intermittently exacerbated). Patient says there must have been someone who filmed while at home in the bathroom and spread this video throughout work. He says he can tell because of the way peers gesture and look at him... He thinks perhaps his nephews are in on it maybe his sister... Patient says that I can not know for sure but is mostly convince because of what he perceives as coworkers gestures. Patient says that it has been so upsetting, worsening over the past month, that last week he remained balled up on the couch... Attempt at reality testing with limited success. Patient talked about conspiracy against him at great length. Patient shared how this experience is so upsetting that he has thought of suicide however he has no plan and does not want to hurt others by his actions. -Agrees to increase Zyprexa. 11/11 Pt remains with intense paranoid delusions about work, thinking there is a conspiracy to malign him at work; assumes it's because he is in line for a promotion; refers to phone being hacked...says he's getting ready to just quit if everyone is going to keep putting him in a box. -no SI; hopeful that radio news writer can find a way to help -agrees to increase Zyprexa to 20mg qhs. -still not sleeping great 11/12 Patient remains overwhelmingly anxious, continues with concerns about paranoid delusional thoughts, convinced he is experiencing a conspiracy at work. Patient says that he feels more internally aggravated today. Appreciates radio news writer trying to help but worried that his aggravation is worsening; still struggling to sleep. Discussed patient is abruptly discontinued cannabis which is likely contributory. Discussed medication and patient agreed to try Risperdal 1 mg; radio news writer followed up with patient awhile later and patient said this medication seemed to help; patient agrees to switch from Zyprexa to risperidone 11/13 Patient reports that Risperdal seems to be a little more helpful but that he continues to struggle; feels that daytime p.r.n. dose helps. Still not sleeping well and discussed trazodone. Patient shared that he is not talking to his sister and remains estranged from much of his family thinking their part of this conspiracy. Sweat Band Sewer again gently challenged patient with reality testing and this time patient was a little more amenable, saying maybe his sister's not a part of it but her definitely is....however, at writers requst, he said he would consider alternative understandings of this 11/14 Patient again struggled with sleep and did not get p.r.n. trazodone; he agrees to have it scheduled. Patient shared concern that he remains internally agitated as he said he snapped at staff for something he would normally just ignore. Patient finds Risperdal 0.5 mg useful as a p.r.n. but agrees to have 1 mg scheduled during the day to see if this helps. 11/15 continue current regimen; still ruminating on paranoid delusions and feels would be unable to handle work; will consider increasing Risperdal 11/16 pt in despair; plagued with paranoid delusions; agrees to increase risperdal 11/17 Patient reports that today he is feeling a little better. He said today, for the 1st time he has doing better with clearing out his mind, not ruminating and focusing on the task at hand. He is hopeful that this will continue though he is sure he is not yet at a place where he would be able to remain this way at work. Patient asked to go to partial day program. Otherwise patient reports sleeping better. Patient shared about things he studied in college, history, economics; talked about taking care of his ill mother. -continue treatment plan 11/18 pt says he again is feeling better and more able to push out ruminating thoughts and focus on what he wants to. Sleeping better; tolerating medication well 11/20: denies any issues at this time. focused on discharge. continue current tx plan. PLAN: CV Continue Risperdal 1 mg bid 0900,1300 Continue Risperdal 2 mg q.h.s. Continue Risperdal 0.5 mg as a p.r.n. for daytime agitation/psychotic anxiety continue clonidine 0.1mg qhs Add trazodone 100 mg q.h.s. p.r.n. for insomnia Discontinued Zyprexa Patient educated on: medication risk/benefits Reason for continued inpatient stay Substantial Risk for: med/psych decompensation Time Spent With Patient Time: Total time managing care of this patient today _10___ minutes.
[2024-11-20 20:00] VITALS: BP 146/67; PULSE 85; RESP 16; TEMP 36.9; O2SAT 99
[2024-11-20] MEDS: risperiDONE 2 MG TABLET 4 MG PO (22:09)
[2024-11-20] MEDS: cloNIDine HCL 0.1 MG TABLET PO (22:09)
[2024-11-20] MEDS: traZODone HCL 100 MG TABLET PO (22:09)
[2024-11-21 07:52] VITALS: BP 116/57; PULSE 61; RESP 16; TEMP 36.6; O2SAT 98
[2024-11-21] MEDS: amLODIPine Besylate 5 MG TABLET PO (08:21)
--- NOTE | 2024-11-21 09:16 | P.DS_ITS ---
DS: Providers Provider Date of Service: 11/21/24 Date of admission: 11/07/24 22:05 Date of discharge: 11/21/24 Primary care physician: None Physician Attending physician on admission: Braluio Frazier Consults: 11/07/24 22:42 Consult to Hospitalist Routine Comment: Consulting Provider: [facility] Hospitalists Reason For Exam: new admit H & P Attending physician on discharge: Braulio Frazier DS: Diagnosis Discharge Diagnosis (1) Delusional disorder: Status: Acute (2) Cannabis abuse: Status: Acute (3) Hypertension: Status: Acute DS: Medications Discharge Medications Home Medications: Previous Rx's ?Medication ?Instructions ?Recorded amlodipine 5 mg tablet 5 mg PO DAILY 30 days #30 tabs 11/21/24 clonidine HCl 0.1 mg tablet 0.1 mg PO BEDTIME 30 days #30 tabs 11/21/24 risperidone 2 mg tablet 4 mg (2 x 2 mg) PO BEDTIME 30 days 11/21/24 #60 tabs trazodone 100 mg tablet 100 mg PO BEDTIME PRN insomnia 30 11/21/24 days #30 tabs Mental Status Exam Mental Status Exam Narrative: Pt is alert and oriented; behavior is cooperative, friendly, calm, more social; patient is not in distress; dressed in casual attire with adequate hygiene and grooming; mood is described as good and affect congruent, brighter, more calm; eye contact appropriate; Speech is verbose but not pressured; normal volume and prosody; no psychomotor agitation present; thought process is goal directed but distracted and circumstantial; Thought content is on paranoid, delusional ideations; no SI; no HI. Denies AVH and there is no evidence of perceptual disturbance. Patients insight and judgment impaired but improved, adequate and at baseline DS: Summary Hospital Course Hospital Course: HPI: Patient is a 58 yo with delusional disorder who presents for worsening paranoid delusions, affecting his sleep and function at work.? Patient does not have insight.? He reports becoming overwhelmed and ruminating on concerns that he is being maligned at work, expressing paranoid delusion that there is some collective conspiracy against him at work (that seems to be chronic but intermittently exacerbated). Patient says there must have been someone who filmed while at home in the bathroom and spread this video throughout work. He says he can tell because of the way peers gesture and look at him... He thinks perhaps his nephews are in on it maybe his sister... Patient says that I can not know for sure but is mostly convince because of what he perceives as coworkers gestures. Patient says that it has been so upsetting, worsening over the past month, that last week he remained balled up on the couch... Attempt at reality testing with limited success. Patient talked about conspiracy against him at great length. 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 Patient shared how this experience is so upsetting that he has thought of suicide however he has no plan and does not want to hurt others by his actions. He Agrees to increase medication to help cope. Patient denies drug or alcohol abuse; denies AVH. HOSPITAL COURSE: Patient with paranoid delusions on admission. That said, he was polite, friendly and in good behavioral and impulse control, appropriate with peers and staff and engaged in treatment. However was willing to try medication. He was 1st started on Zyprexa 20 mg which was titrated however it did not have any effect and did not help him sleep. This was switched Risperdal which was titrated and eventually became effective. Patient never developed insight though he would allow blurb writer to gently challenge him with reality testing. Patient however felt that Risperdal helped him to become calm and stop ruminating over his concerns, so much so that he felt he would probably be able to return to work at some point. He said for the 1st time I'm doing better with clearing out my mind, not ruminating and focusing on the task at hand. He is hopeful that this will continue. Patient's sleep was treated with a combin ation of clonidine and sometimes trazodone. Patient asked to go to partial day program for continued treatment which blurb writer felt once a good idea. Patient remained feeling much better on Risperdal and felt that he was getting close to his regular self. He agreed he was ready for discharge, comforted by being able to go to the partial day program and having a bridge psychiatrist available until his outpatient appointment. Patient remained in good behavioral and impulse control and optimistic and future oriented. No SI at all. Patient is not in imminent risk for harm to self or others and appropriate to return to the community for treatment. Medication called Started Risperdal 4 mg q.h.s. Started clonidine 0.1mg qhs Time spent discussing smoking cessation with patient: 3 to 10 minutes (MAT triggers desire to smoke and does not want) Status at Discharge Functional status at discharge: independent ambulation Overall status at discharge: patient is back to baseline Time Spent with Patient Time attestation: Total time managing care of this patient today _40___ minutes. Time spent: Greater than 30 minutes Discharge Plan Discharge Anticipated Discharge Date/Time: 11/21/24 09:12 Patient Disposition: Home, Self-Care Discharge Diagnosis: Delusional Disorder Referrals: [facility] Partial Hospitalization Program (PHP) [Other] - 12/11/24 8:00 am (Initial Intake Appointment for PHP Program Appointment is in person) [facility]: Ximena Mcdaniel (therapy) [Other] - 11/26/24 10:00 am (Initial Diagnostic evaluation for Therapy Appointment in person at [facility] ) [facility]: Richelle Son [Other] - 01/02/25 11:00 am (Initial psychiatric evaluation by psychiatric provider for medication management services Appointment is in person at [facility] ) JONNIE GreenBC: [facility] [Other] - 12/08/24 2:00 pm (Hospital discharge appointment at [facility] with [facility] for medication management until you meet with your new provider at [facility]. ) Physician,None [Primary Care Provider] - 1 Week Discharge Medications: New clonidine HCl 0.1 mg Tablet 0.1 mg PO BEDTIME 30 Days Qty: 30 1RF Protocol: Hold for SBP< HOLD for SBP < : 90 risperidone 2 mg Tablet 4 mg PO BEDTIME 30 Days Qty: 60 1RF trazodone 100 mg Tablet 100 mg PO BEDTIME PRN (Reason: insomnia) 30 Days Qty: 30 1RF Continued amlodipine 5 mg tablet 5 mg PO DAILY 30 Days Qty: 30 0RF Discharge Orders: Discharge Order (Routine); Ordered 11/21/24 Ordered By: Braulio Frazier Diet: Regular diet Activity on Discharge: As tolerated Stand Alone Forms: Patient Portal Discharge page, Community Support Print Language: Kyrgyz Care Plan Goals: Maintain mood and safe behaviors Take medications as prescribed Practice coping skills Continue with outpatient providers and reach out to them as needed Health Concerns: Mood stability and behaviors Hypertension Plan of Treatment: Follow up with your PCP, psychiatric provider and other outpatient providers regarding above concerns Take medications as prescribed Assessment: Risk assessment at time of discharge:? Patient was interviewed prior to discharge and found to be fully oriented and without any SI or HI. Patient has improved insight and judgment and wants to continue treatment. Patient is not in imminent risk of harm to self or others and has a safety plan that includes presenting to the closest ER or calling 911 if feeling unsafe.? Patient has been observed closely by nursing and unit staff throughout admission; patient has not engaged in any behaviors that suggest dangerousness to self or others and has demonstrated appropriate behaviors and impulse control Discharge Date/Time: 11/21/24 11:00
== END 2024-11-21 11:00 | disposition home or self-care (01) | DRG 885 ==
PROVIDERS: Registered Nurse; Admitting Provider Psychiatry & Neurology Psychiatry; Visit Provider Psychiatry & Neurology Psychiatry
DX: F22 Delusional disorders (principal); F17.210 Nicotine dependence, cigarettes, uncomplicated; Z71.6 Tobacco abuse counseling; I10 Essential (primary) hypertension; F12.10 Cannabis abuse, uncomplicated; Z79.899 Other long term (current) drug therapy
CPT/HCPCS: 36415; 80053; 80061

== ENCOUNTER → 2024-11-07 22:05 | Outpatient (BNV) | payer OTHER, SELFPAY | PROVIDERS: Admitting Provider Psychiatry & Neurology Psychiatry; Visit Provider Psychiatry & Neurology Psychiatry | DX: F22 Delusional disorders (principal); F12.10 Cannabis abuse, uncomplicated; I10 Essential (primary) hypertension | CPT/HCPCS: 99231; 99232 ==

== ENCOUNTER → 2024-11-07 22:05 | Outpatient (BNV) | payer OTHER, SELFPAY | PROVIDERS: Admitting Provider Psychiatry & Neurology Psychiatry; Visit Provider Physician Assistant | DX: I10 Essential (primary) hypertension (principal) | CPT/HCPCS: 99222 ==

== ENCOUNTER 2024-12-08 13:50 | Outpatient (AMB) | payer OTHER, SELFPAY ==
--- NOTE | 2024-12-08 13:56 | MHC.OFFVISPS ---
Intake Intake Visit Reasons: bridge Psychiatric Aide Instructor Required: No Allergies No Known Allergies [No Known Allergies*] Allergy (Unverified 05/13/20 16:19) Medication List - Last Reconciled 12/08/24 by Trudy Bone APRN amlodipine 5 mg PO DAILY 30 days clonidine HCl 0.1 mg See Protocol PO BEDTIME 30 days risperidone 2 mg PO BEDTIME 30 days risperidone (Risperdal) 1 mg orally Take one tablet at 1130 pm and 1 tablet at 530 am; trazodone 100 mg PO BEDTIME PRN 30 days HPI- Psychiatric Chief Complaint: bridge HPI Narrative: Pt is a 58 yo with delusional disorder who is here for Bridge appointment following an inpatient admission on and waiting for appt for medication at [facility] on 12/26/24. Upon admission to , he presented with paranoid delusions, affecting his sleep and function at work.? He had reported becoming overwhelmed and ruminating on concerns that he is being maligned at work, expressing paranoid delusion that there is some collective conspiracy against him at [facility]. [facility] started on Zyprexa 20 mg which was titrated however it did not have any effect and did not help him sleep. This was switched Risperdal which was titrated and eventually became effective. Patient never developed insight though he would allow commercial loan underwriter to gently challenge him with reality testing. Patient however felt that Risperdal helped him to become calm and stop ruminating over his concerns, so much so that he felt he would probably be able to return to work at some point. He said for the 1st time I'm doing better with clearing out my mind, not ruminating and focusing on the task at hand. Patient's sleep was treated with a combination of clonidine and sometimes trazodone. Pt reports that he is not taking the trazodone due to it being too sedating and making it hard for him to wake up and function at work. He also reports the risperdal at bedtime causes sexual side effects and he is concerned about that. He had been taking risperdal 1 mg BID in daytime and then 2 mg at bedtime in the hospital and seemed to be tolerating it better. He is agreeable to go back to that scheud. he is back to work and workes overnights from 1am to 1130 am so the meds are schedule accordingly. He reports resuming small amounts of THC and understands that this puts him at risk of worsening ruminating and anxiety. He had little ability for insight into his delusional thinking and had trouble tolerating hearing that THC use could contribute to faulty paranoid ideas. Patient decided not to go to partial day program and went back to work instead. No SI or HI. Patient is not in imminent risk for harm to self or others and appropriate to return to the community for treatment. Discharge plan from hospital: [facility] Partial Hospitalization Program (PHP) [Other] - 12/11/24 8:00 am (Initial Intake Appointment for PHP Program Appointment is in person) [place] [facility]: Ximena Mcdaniel (therapy) [Other] - 11/26/24 10:00 am (Initial Diagnostic evaluation for Therapy Appointment in person at [facility] ) [facility]: Richelle Son [Other] - 01/02/25 11:00 am (Initial psychiatric evaluation by psychiatric provider for medication management services Appointment is in person at [facility] ) EJ Green: [facility] [Other] - 12/08/24 2:00 pm ([facility]ospital discharge appointment [place] [facility] [place] program for medication management until you meet with your new provider at [facility]. 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 [employer] and smear campaign started , DUI 7 years ago and went to [facility] dual diagnosis program which was quite helpful- no clear outpatient treatment for psych Subjective Subjective Subjective Medication Compliance: Yes Side effects from medications: Yes (sexual side effects and feeling foggy in am ) Mental Status Exam Mental Status Exam Patient Appearance: Appropriate Patient Orientation: Person, Place, Time and Situation Level of Consciousness: Awake, Appropriate and Alert Patient Behavior: Appropriate and Guarded Mood Description: Calm Affect Description: Calm Patient Cognition Impaired: No Ability to Follow Directions: Good Speech Pattern: Clear and Coherent Memory Description: Intact Hallucinations: None Delusions: Paranoid Ideation (pt gaurded and circumspect about sharing thoughts but did alluded to the smear ) Thought Process: Goal Oriented Thought Content: positive for Goal Oriented Judgement: Poor Assessment and Plan Assessment & Plan (1) Delusional disorder: Status: Acute Code(s): F22 - Delusional disorders (2) Paranoia: Status: Acute Code(s): F22 - Delusional disorders Plan education re relapse prevention change dosing of risperdal reminder of appt with psychiatrist at [facility] advised to limit or stop THC Medications: New risperidone (Risperdal) 1 mg orally Take one tablet at 1130 pm and 1 tablet at 530 am; 60 tabs 0RF Changed From risperidone 4 mg (2 x 2 mg) PO BEDTIME 30 days 60 tabs 1RF To risperidone 2 mg PO BEDTIME 30 days 30 tabs 1RF Refilled clonidine HCl 0.1 mg See Protocol PO BEDTIME 30 days 30 tabs 0RF Counseling and coordination of Care Pt. Self Management counseling: Mod caffeine/ETOH intake, Sleep hygiene, General coping skills and Problem solving Medication management counseling: Effectiveness, Side effects, Dosing range, Duration, Drug interaction and Adherence Diagnosis and Prognosis Counseling: Accuracy of diagnosis, Prognosis over time, Impact of diagnosis on life functions, Impact of family relationship, Problematic behaviors secondary to diagnosis and Adequacy of current interventions Details: I spent 45 minutes reviewing the record, seeing the patient and documenting in the medical record. Counseling provided to the patient/caregiver as outlined below. Addressed patient/caregiver concerns regarding current medication regime including effective adherence. Addressed patient/caregiver concerns regarding diagnosis and prognosis including accuracy of diagnosis, prognosis over time, impact of diagnosis. Addressed patient/caregiver concerns regarding impact of recent stressors. [facility] Medical History (Updated 11/29/24 @ 00:02 by Ryland Palafox) Delusional disorder Paranoia Anxiety Hypertension Social History Household Members: Family Housing: House Do you presently have visiting nurse or other home services: No Patient Tobacco Use Status: Current everyday Tobacco user Tobacco use type: Cigarette Cigarette Packs Per Day: 0.75 Cigarettes Per Day: 15.0 e-Cigarette/Vaping Use: Currently Using Second Hand Smoke Exposure: Yes Substance Use Type: Marijuana service: No Sexual orientation: Straight/Heterosexual Social History: living at sister, brother in law's and nephew who are away this week on vacation, pt working lately at [employer]- limited friends lost alot in 10 years caring for mom, and clearly some alienation from [employer] campaign Substance History: MJ , hx etoh- none recent Trauma History: unobtained today Coding Level of Care Code Est Pt Level 5 (65193) Diagnoses Delusional disorder F22 Paranoia F22
--- OUTSIDE RECORDS SUMMARY | 2024-12-08 16:03 | XMS_ITS | Clinical Summary ---
Author Organization [employer] Address [address] [place] [address] Care Team Providers Care Senior Medical Technologist Name Role Phone Unavailable Primary Care Provider [...] of 3 - 19+ 3-dose series) 1984 Pneumococcal Vaccine: 50+ Ye ars (1 of 1 - PCV) 12/08/2015 Zoster Vaccines (1 of 2) 12/08/2015 COVID-19 [...] 5 Years) and At-Risk Patients (6 to 49) Years) Aged Out No longer eligible b ased on patient's age to complete this topic RSV under 20 months Aged Out No longe r eligible based on patient's age to complete this topic Rotavirus Vaccines Aged Out No longer eligible based on patient's age to complete this topic
--- OUTSIDE RECORDS SUMMARY | 2024-12-08 16:03 | XMS_ITS | Encounter Summary ---
Author Organization [facility] [facility] Address [address] [place] [address] Care Team Providers Care Hide Tanner Name Role Phone Unavailable Primary Care Provider Unavailabl e Encounter Details Date Type Department Care Team (Latest Contact Info) Description 04/30/2019 Abstract [facility] CONVERSIONS Dental, Provider, DDS Social History Tobacco [...]
== END 2024-12-08 14:49 | disposition home or self-care (01) ==
LOC: HO.HOP 13:50
PROVIDERS: Visit Provider Clinical Nurse Specialist Psychiatric/Mental Health
DX: F22 Delusional disorders (principal)
CPT/HCPCS: 99215

== ENCOUNTER → 2024-12-08 13:50 | Outpatient (BNVA) | payer OTHER, SELFPAY | PROVIDERS: Visit Provider Clinical Nurse Specialist Psychiatric/Mental Health ==

== ENCOUNTER 2025-06-01 07:28 | Outpatient (AMB) | payer OTHER, SELFPAY ==
--- NOTE | 2025-06-01 07:31 | MHC.PC.OV ---
Vital Signs 06/01/25 07:53 Height 5 ft 10 in Weight 184 lb BMI 26.4 BP 138/72 Blood Pressure Location Rt brachial Position Sitting Respiration 16 Pulse 66 Pulse Source Pulse Oximeter Temp 98 F Temp Source Temporal Artery Scan Pulse Oximetry (%) 96 Oxygen Delivery Method Room Air Intake Visit Reasons: Medication follow up-transfer from [facility] Final Inspector And Tester Required: No Accompanied by: Self / Same As Patient Allergies No Known Allergies (No Known Allergies*) Allergy (Verified 06/01/25 07:32) Medication List - Last Reconciled 06/01/25 by Jesús Mckeon MD amlodipine 5 mg PO DAILY 30 days aripiprazole 5 mg PO QAM Tobacco use date assessed: 06/01/25 Dental Screening Dental Screen Date: 06/01/25 Did you have a dental visit in the last 12 months?: Yes Did you have a dental problem in the last 6 months where you did not have access to dental care?: No Was dental information given to patient?: Patient has dentist HPI HPI Comments History of Present Illness Details The patient is a 59-year-old male presenting for follow-up on chronic medical conditions. The patient reports having longstanding anxiety and depression for which he is under the care of a counselor. He reports taking Aripiprazole (brand name: Abilify) at a dose of 5 mg daily to help manage symptoms. The patient expresses that his mood is currently stable, although he describes feeling sabotaged by past events 12 years ago which continue to affect him emotionally. The patient also refers to this as contributing to his current lifestyle, which involves going to work at [employer] and then returning home. The patient has a history of essential hypertension, managed with Amlodipine, and reports that his blood pressure readings have been stable. He is currently asymptomatic for blood pressure-related issues. Regarding hypercholesterolemia, previous blood work from October indicated elevated cholesterol levels, and a decision was made to repeat this blood work today to reassess and determine if initiation of a statin, specifically Atorvastatin, is warranted. Social habits reveal the patient is a smoker, currently consuming about half a pack of cigarettes per day for over 40 years, except for several successful quit attempts. The patient also occasionally uses cannabis to aid sleep but engages in minimal alcohol consumption, primarily reserved for social events such as family celebrations. Medical History: - Generalized Anxiety Disorder - Major Depressive Disorder - Essential Hypertension - Hypercholesterolemia (suspected based on October blood work) - Undescended Testicle - Past procedures: Colonoscopy (4-5 years ago), Cystoscopy (following blood irregularity found by a doctor) Surgical History: - Colonoscopy (4-5 years ago) - Cystoscopy (date unspecified) Medications: - Amlodipine for hypertension - Aripiprazole (Abilify) 5 mg for depression/anxiety Family History: - Diabetes: Present in brother, sister, and father - Mother with renal disease, colon cancer Diagnostic Results: - Labs: Elevated cholesterol from October blood work - Tests/Diagnostics: Colonoscopy 4-5 years ago, negative for malignancy; recent cystoscopy, details not fully provided Social History: - Employment: 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 [employer]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 - Living arrangement: Resides with brother and [id number] - Substance use: Smokes about half a pack of cigarettes daily, occasional cannabis use for sleep, minimal alcohol consumption - Family Structure: Lives with family, has a supportive environment [facility] Medical History (Updated 06/01/25 @ 08:12 by Jesús Mckeon MD) Hyperlipidemia Tobacco use disorder, continuous Anxiety and depression Delusional disorder Paranoia Anxiety Hypertension Surgical History (Updated 06/01/25 @ 07:18 by Yesi Arango) History of colonoscopy (~01/31/19) Social History Household Members: Family Housing: House Do you presently have visiting nurse or other home services: No Patient Tobacco Use Status: Current everyday Tobacco user Tobacco use type: Cigarette Cigarette Packs Per Day: 0.75 Cigarettes Per Day: 15.0 e-Cigarette/Vaping Use: Currently Using Second Hand Smoke Exposure: Yes Substance Use Type: Marijuana service: No Current occupational status: employed Current occupation: [employer] Sexual orientation: Straight/Heterosexual Questionnaire PHQ-9 Over the last 2 weeks, how often have you been bothered by any of the following problems? 1. Little interest or pleasure in doing things: not at all 2. Feeling down, depressed, or hopeless: not at all 3. Trouble falling or staying asleep, or sleeping too much: not at all 4. Feeling tired or having little energy: not at all 5. Poor appetite or overeating: not at all 6. Feeling bad about yourself - or that you are a failure or have let yourself or your family down: not at all 7. Trouble concentrating on things, such as reading the newspaper or watching television: not at all 8. Moving or speaking so slowly that other people could have noticed. Or the opposite - being so fidgety or restless that you have been moving around a lot more than usual: not at all 9. Thoughts that you would be better off or of hurting yourself in some way: not at all Total score: 0 Depression Screening Interpretation: Negative Depression Screening Done: Yes 86877 - PHQ-9 Billing: Yes Source: Developed by Drs. Ruel Avery, Judy Garvey, Javier Conn and colleagues, with an educational asher from [employer]. Thrive Questionnaire Date Thrive assessed: 11/08/24 I am a: Patient What is your living situation today?: I have a steady place to live Within the past 12 months, did the food you bought not last and you didn't have the money to get more?: Never true Within the past 12 months, did you worry whether your food would run out before you got money to buy more?: Never true Do you have trouble paying for medicines?: No Do you have trouble getting transportation to medical appointments?: No Do you have trouble paying your heating and electricity bill?: No Do you have trouble taking care of your child, family member or friend?: No Do you have trouble with day-to-day activities such as bathing, preparing meals, shopping, managing finances, etc.?: No Are you currently unemployed and looking for a job?: No Are you interested in more education?: No THRIVE Score: 0 AUDIT C Alcohol Use Questionnaire (AUDIT-C) 1. How often do you have a drink containing alcohol?: Monthly or less 2. How many drinks containing alcohol do you have on a typical day when you are drinking?: 1 or 2 3. How often do you have six or more drinks on one occasion?: Never Total Score: 1 Score Reviewed/Action Taken: Yes MICHEAL-7 AMB Questionnaire MICHEAL-7 Date MICHEAL - 7 assessed: 06/01/25 Feeling nervous, anxious, or on edge: 1 = Several days Not being able to stop or control worryin = Several days Worrying too much about different things: 1 = Several days Trouble relaxin = Several days Being so restless that it is hard to sit still: 1 = Several days Becoming easily annoyed or irritable: 1 = Several days Feeling afraid as if something awful might happen: 1 = Several days Total MICHEAL-7 score (0-4 normal; 5-9 mild; 10-14 moderate; 15-21 severe): 7 Source: Developed by Drs. Ruel Avery, Judy Garvey, Javier Conn and colleagues, with an educational asher from [employer]. MICHEAL-7 Assessment Billing MICHEAL-7 Assessment Tool: MICHEAL-7 Assessment 00269 Review of Systems Const Details: - Psychiatric: Reports stable mood with some residual emotional distress from past events - Cardiovascular: Denies symptoms related to hypertension - Respiratory: Denies symptoms, but reports tobacco use - Gastrointestinal: Denies symptoms, colonoscopy results within normal limits All systems reviewed & are unremarkable except as reviewed in HPI and above Physical exam (Primary Care) Vital Signs: Last Vital Signs Temp 98 F 06/01/25 07:53 Pulse 66 06/01/25 07:53 Resp 16 06/01/25 07:53 BP 138/72 06/01/25 07:53 Pulse Ox 96 06/01/25 07:53 Oxygen Delivery Method Room Air 06/01/25 07:53 BMI result Body Mass Index 26.4 Tobacco/Smoking Status: Tobacco use Status Tobacco use date assessed 06/01/25 06/01/25 07:33 Patient Tobacco Use Status Current everyday Tobacco 06/01/25 07:33 Tobacco use type Cigarette 06/01/25 07:33 e-Cigarette/Vaping Use Currently Using 06/01/25 07:33 PHQ-9: PHQ-9 Score PHQ-9: Total score 0 06/01/25 08:07 Depression Screening Interpretation: Negative Thrive Assessment: Date of Thrive Assessment Date Thrive assessed 11/08/24 06/01/25 07:33 Const Other: General: +Alert and oriented, Well nourished, No acute distress. Eye: Pupils are equal, round and reactive to light, Intact accommodation, Extraocular movements are intact, Normal conjunctiva, Vision unchanged. HENT: Normocephalic, Atraumatic, Tympanic membranes are clear, Normal hearing, Oral mucosa is moist, No pharyngeal erythema, Ear canals patent. Respiratory: Lungs CTA bilaterally, No wheeze, Respirations are non-labored. Cardiovascular: Regular rate, Regular rhythm, S1 auscultated, S2 auscultated, No murmur, Good pulses equal in all extremities, Normal peripheral perfusion, No edema. Gastrointestinal: Soft, Non-tender, Non-distended, Normal bowel sounds, No organomegaly. Musculoskeletal: Normal range of motion, Normal strength, No tenderness, No swelling, No deformity, Normal gait. Integumentary: Warm, Dry, [place], Intact. Neurologic: Alert, Oriented, Normal sensory, Normal motor function, No focal defects, Cranial Nerves II-XII are grossly intact, Normal deep tendon reflexes. Psychiatric: Cooperative, Mood described as just am, Appropriate affect, Normal judgment. Coding Level of Care Code New Pt Level 4 (71626) Diagnoses Primary hypertension I10 Hypertension type: primary hypertension Anxiety and depression F41.9; F32.A Delusional disorder F22 Tobacco use disorder, continuous F17.209 Other hyperlipidemia E78.49 Hyperlipidemia type: other hyperlipidemia Additional Codes MICHEAL-7 Assessment Billing - MICHEAL-7 Assessment Tool: MICHEAL-7 Assessment 96987 ([id number]) PHQ-9 - 97070 - PHQ-9 Billing: Yes ([id number]) Assessment & Plan Assessment & Plan (1) Hypertension: Comment: - Continue Amlodipine. - BP readings are within normal limits. Code(s): I10 - Essential (primary) hypertension Category: Medical Qualifiers: Hypertension type: primary hypertension Qualified Code(s): I10 - Essential (primary) hypertension (2) Anxiety and depression: Comment: - Continue current treatment with Aripiprazole (Abilify) 5 mg. - Maintain counseling sessions. Code(s): F41.9 - Anxiety disorder, unspecified; F32.A - Depression, unspecified Category: Medical (3) Delusional disorder: Comment: r/o schizophrenia Code(s): F22 - Delusional disorders Category: Medical (4) Tobacco use disorder, continuous: Comment: Over 40 pack year smoking history and advised patient on cessation of tobacco. Given his extensive tobacco use we will obtain lung cancer screening Code(s): F17.209 - Nicotine dependence, unspecified, with unspecified nicotine-induced disorders Category: Medical (5) Hyperlipidemia: Comment: - Repeat blood work to assess lipid profile. (Blood work from October showing elevated LDL and requested initiation of atorvastatin but patient would like to repeat blood work 1st and determine) - Consider Atorvastatin depending on lipid results. Code(s): E78.5 - Hyperlipidemia, unspecified Category: Medical Qualifiers: Hyperlipidemia type: other hyperlipidemia Qualified Code(s): E78.49 - Other hyperlipidemia Plan: Health maintenance: - Blood work today to reassess lipid profile. - Lung cancer screening ordered due to long history of smoking. - Discussion regarding healthy lifestyle modifications, including potential smoking cessation. Patient was informed and verbally consented to the use of an ambient scribe for clinic note documentation during this visit. Plan During the visit, I discussed with the patient the importance of managing his chronic health issues, emphasizing the need for regular follow-up and medication compliance. We focused on hypercholesterolemia management, considering repetition of blood work to decide on Atorvastatin therapy. I highlighted the significant cardiovascular benefits and the importance of using statins to lower risks associated with his profile due to current smoking habits. Tobacco cessation also discussed, given his significant smoking history and recommended cessation resources. We discussed lung health, prompting a lung cancer screening schedule due to his smoking history. No acute safety concerns were raised during the visit, and I advised routine follow-up in six months, considering test results. Orders: Orders Complete Blood Count Auto Diff Today Z76.89 - Persons encountering health services in other specified circumstances Comprehensive Met. Panel Today Z76.89 - Persons encountering health services in other specified circumstances Hemoglobin A1c Today Z76.89 - Persons encountering health services in other specified circumstances Hepatitis A,B,C Profile Today Z76.89 - Persons encountering health services in other specified circumstances HIV Ab/Ag Today Z76.89 - Persons encountering health services in other specified circumstances Syphilis Screen Today Z76.89 - Persons encountering health services in other specified circumstances Vitamin D 25-OH Total Today Z76.89 - Persons encountering health services in other specified circumstances Lipid Panel Today Z76.89 - Persons encountering health services in other specified circumstances TSH reflex Free T4 Today Z76.89 - Persons encountering health services in other specified circumstances Testosterone, Free/Total Today Z76.89 - Persons encountering health services in other specified circumstances Referrals Lung Cancer Screening Referral F17.209 - Nicotine dependence, unspecified, with unspecified nicotine-induced disorders Patient Instructions: - Continue taking Amlodipine for high blood pressure and Aripiprazole for mood disorders as prescribed. - Complete the ordered blood work today and await a follow-up call regarding results. - Schedule a lung cancer screening test based on the order placed. - Consider reducing cigarette consumption and explore cessation resources. - Quitting both cannabis and tobacco whenever possible for better health outcomes. - See you back in six months; call the office with changes in your health status.
--- OUTSIDE RECORDS SUMMARY | 2025-06-01 07:31 | XMS_ITS | Patient Health Record ---
Author Organization [facility] Address [address] [place] [address] Care Team Providers Care Bearing Machine Operator Name Role Phone Zora (RETIRED) Giuliano GAUTAM Primary Care Provide r Ricky Friedman Jr Unavailable Reason For Referral No Information Medications Medication SIG (Take, Route, Frequency, Duration) Notes Start Date End Date Status Colyte with Flavor Packs 240 GM As direc pura Orally Over the specified time. for 1 day(s) 11/27/2018 Active cloNIDine HCl 0.1 MG 1 tablet at bedtime Orally three x a day Active Vitamin D3 2000 UNIT 2 capsules Orally Once a day Active hydroCHLOROthiazide 25 MG 1 tablet in th e morning Orally Once a day for 30 day(s) Active DULoxetine HCl 30 MG 1 capsule Orally On ce a day for 30 day(s) Active Immunizations Vaccine Route Administration Date Status Comme nts Influenza Unknown 11/27/2018 Refused Social History Tobacco Use: Social History Observation Description Date Details (start date - stop date) Former Smoker NA - NA Tobacco Use/Smoking Question Answer Notes Patient is a former smoker How long has it been since you last smoked? 3-6 months Alcohol Screen Question Answer Notes Did you have a drink contain ing alcohol in the past year? Yes How often did you have a dri nk containing alcohol in the past year? Monthly or less (1 point) How many drinks did you have on a typical day when you were drinking in the past year? 1 or 2 drinks (0 point) How often did you have 6 or more drinks on one occasion in the past year? Never (0 point) Points 1 Interpretation Negative Section Notes: pt stopped alcholol 2-3 isac hs ago Problems Problem Type SNOMED Code ICD Code Onset Dates Problem Status W/U Status Risk Notes Problem 152401464 Colon cancer screening (Z12.11) Active confirmed Problem 613352854 Long-term curren t use of high risk medication other than anticoagulant (Z79.899) Active confirmed Problem 70254931 Hypertension, unspecified type (I10) Active confirmed Plan Of Treatment Future Test Test Name Order Date COLONOSCOPY 11/27/2018 Insurance Providers Payer Name Payer Address Payer Phone Subscriber Number Group Number Insured Name Patient Relationship to Insured Coverage Start Date Coverage End Date [facility] [address] [address] [place], [place] [id number] DERRELL ZAMBRANO Self - patient is the insured [facility] [address] [place] [address] [id number] DERRELL ZAMBRANO Self - patient is the insured Medical (General) History Medical History History ICD Code hypertension depression Surgical History Surgery Date(Month/Year) tonsillectomy bladder biopsy
--- OUTSIDE RECORDS SUMMARY | 2025-06-01 07:31 | XMS_ITS | Encounter Summary ---
Author Organization [employer] Address [address] [place] [address] Care Team Providers Care Hammer Smith Name Role Phone Unavailable Primary Care Provider Unavailabl e Encounter Details Date Type Department Care Team (Latest Contact Info) Description 04/30/2019 Abstract [facility] CONVERSIONS Dental, Provider, DDS Social History [...]
--- OUTSIDE RECORDS SUMMARY | 2025-06-01 07:31 | XMS_ITS | Clinical Summary ---
Author Organization [employer] Address [address] [place] [address] Care Team Providers Care Railway Head Tender Name Role Phone Unavailable Primary Care Provider [...] FOBT 1965 Lipid Panel 1965 Sigmoidoscopy 1965 Disability Screening 1965 Alcohol/Substance Use Screening 1977 Tobacco Screening 1977 DTaP/Tdap/Td Vaccines (1 - Tdap) 1984 Hepatitis B Vaccines (1 of 3 - 19+ 3-dose series) 1984 Pneumococcal Vaccine: 50+ Ye ars (1 of 1 - PCV) 12/08/2015 Zoster Vaccines (1 of 2) 12/08/2015 COVID-19 Vaccine (1 - 2023-2 5 season) 2025 Influenza Vaccine (#1) 2025 RSV Patients and Pa tients Aged 60 [...] patient's age to complete this topic Meningococcal B Vaccine Aged Out No l onger eligible based on patient's age to complete [...]
[2025-06-01 07:53] VITALS: BP 138/72; PULSE 66; RESP 16; TEMP 36.6; O2SAT 96; BMI 26.4
== END 2025-06-01 08:12 | disposition home or self-care (01) ==
LOC: HO.HMCHD 07:29
PROVIDERS: PCP Student in an Organized Health Care Education/Training Program; Visit Provider Student in an Organized Health Care Education/Training Program
DX: I10 Essential (primary) hypertension (principal); F41.9 Anxiety disorder, unspecified; F32.A Depression, unspecified; F22 Delusional disorders; F17.209 Nicotine dependence, unspecified, with unspecified nicotine-induced disorders; E78.49 Other hyperlipidemia

== ENCOUNTER 2025-06-01 08:13 | Outpatient (REF) | payer OTHER, SELFPAY ==
[2025-06-01 10:54] LABS: MANUAL DIFF FLAG NO
[2025-06-01 11:01] LABS: Hematocrit 44.2 % (42.0-52.0); Hemoglobin 15.1 g/dl (14.0-18.0); Imm Gran Abs Auto 0.02 X10*3/uL (0.00-0.03); Imm Gran Pct Auto 0.3 % (0.0-0.4); Lymphocytes Absolute Auto 1.8 X10*3/uL (1.2-4.9); Mean Corpuscular HGB Conc 34.2 g/dl (31.0-36.0); Mean Corpuscular Hemoglobin 30.3 pg (27.0-33.0); Mean Corpuscular Volume 88.8 fL (80.0-98.0); NRBC Abs Auto 0.000 X10*3/uL (0.0-0.012); NRBC Pct Auto 0.0 /100WBC (0.0-0.2); Platelet Count 209 X10*3/uL (160-400); Red Blood Count 4.98 X10*6/uL (4.60-5.80); White Blood Count 5.9 X10*3/uL (4.8-10.8)
[2025-06-01 11:24] LABS: Alanine Aminotransferase 17 U/L (0-40); Albumin Level 4.6 g/dL (3.5-5.0); Alkaline Phosphatase 68 U/L (39-117); Anion Gap 10 (12-20); Aspartate Amino Transferase 23 U/L (5-37); Blood Urea Nitrogen 13 mg/dL (9-16); Calcium 9.2 mg/dL (8.4-10.2); Carbon Dioxide 28 mmol/L (22-29); Chloride 105 mmol/L (96-108); Cholesterol 173 mg/dL (<200); Estimated Glomerular Filt Rate > 60; HDL Cholesterol 60 mg/dL (>40); Potassium 4.8 mmol/L (3.3-5.1); Sodium 138 mmol/L (135-145); Total Protein 7.4 g/dL (6.5-8.0); Triglycerides 33 mg/dL (<150)
[2025-06-01 11:29] LABS: HBS Num1 0.62 mIU/mL (0-7.99); HBc Num1 0.13 S/CO (0.00-0.79); HBsAGNum1 0.49 S/CO (0.00-0.99); HIV Num 1 0.05 S/CO (0.00-0.99); Hepatitis A Antibody IgM 0.15 Index (0-0.79); Hepatitis B Surface Antigen Negative (Negative); Syphilis Screen Nonreactive (Nonreactive); ~HepC Num1 0.09 S/CO (0.00-0.79); ~Hepatitis A Antibody IgM Nonreactive (Nonreactive); ~Hepatitis B Surface Antibody NONREACTIVE (Nonreactive); ~Hepatitis C Antibody Nonreactive (Nonreactive)
[2025-06-01 12:08] LABS: Free T4 (Free Thyroxine) 0.95 ng/dL (0.71-1.85)
[2025-06-10 14:19] LABS: Testosterone, Free 49.0 pg/mL (35.0-155.0)
== END 2025-06-01 08:14 | disposition home or self-care (01) ==
LOC: HO.10HDL 08:13
PROVIDERS: Visit Provider Student in an Organized Health Care Education/Training Program
DX: Z76.89 Persons encountering health services in other specified circumstances (principal); I10 Essential (primary) hypertension; F41.9 Anxiety disorder, unspecified; F32.A Depression, unspecified; F17.209 Nicotine dependence, unspecified, with unspecified nicotine-induced disorders; E78.49 Other hyperlipidemia; F22 Delusional disorders
CPT/HCPCS: 36415; 80053; 80061; 82306; 83036; 84402; 84403; 84439; 84443; 85025; 86704; 86706; 86709; 86780; 86803; 87340; 87389; 96127